=== PATIENT | female | born 1980 | race Caucasian/White ===

== ENCOUNTER 2018-05-10 17:31 | Inpatient (IN) | payer OTHER, MEDICAID, SELFPAY ==
[2018-05-10] VITALS (7 sets, daily range): BP systolic 104–116; BP diastolic 61–70; PULSE 88–104; RESP 16–18; TEMP 36.6–36.8; O2SAT 97–99; BMI 21.8
--- NOTE | 2018-05-10 18:18 | PC.NURSE ---
Addendum entered by Flor Frankel CNA 05/11/18 07:38: Original Note: admission pt to AC room 228 direct admit from 's office. Pt alert and oriented but states has been a little dizzy today. able to self transfer. Denies pain but states has had a difficult week loosing both her relationship and job. Has supportive friends at bedside. Spoke with pt prior to friends arriving and pt states is not feeling suicidal or thinking of harming herself. states is in a deep depression and just knows she needs to quit drinking and not sure of what to do next. Pt tearful and apologizes frequently. Pt updated about medical plan and oriented to room and call light. CIWA score currently 7. pt able to voice needs and questions and instructed to continue with the same. awaiting meds/fluids from pharmacy.
[2018-05-10] MEDS: NICOTINE 14 PATCH 14 MG TOP (18:51)
[2018-05-10] MEDS: MAGNESIUM SULFATE 2 GM, FOLIC ACID 1 MG, THIAMINE 100 MG, MULTIVITAMIN 10 ML in SODIUM ... IV (18:51)
[2018-05-10] MEDS: ONDANSETRON 4 MG ODT PO (18:52)
[2018-05-10] MEDS: LORazepam 1 MG TABLET PO ×2 (18:52→21:29)
[2018-05-10] MEDS: THIAMINE 100 MG TABLET PO (18:52)
[2018-05-10 19:34] LABS: INR 0.9 (0.9-1.3); Prothrombin Time 10.3 SECONDS (10.1-12.7)
[2018-05-10 19:45] LABS: Add Manual Diff / Slide Review NO; Basophils Percent Auto 0.5 % (0-2); Eosinophils Percent Auto 2.1 % (2-4); Hematocrit 40.9 % (36-46); Hemoglobin 13.8 g/dL (12.0-16.0); Lymphocytes Percent Auto 13.5 % (25-40); Mean Corpuscular HGB Conc 33.7 % (30-36); Mean Corpuscular Hemoglobin 32.1 PG (26-34); Mean Corpuscular Volume 95.5 fL (80-100); Monocytes Percent Auto 4.5 % (3-14); Neutrophils Absolute Auto 11800 /uL (3000-5900); Neutrophils Percent Auto 79.4 % (50-75); Platelet Count 284 X10^3/uL (150-400); Red Blood Cell Count 4.29 X10^6/uL (4.0-5.2); White Blood Cell Count 14.9 X10^3/uL (4.5-11.0)
[2018-05-10 19:56] LABS: Alanine Aminotransferase 64 IU/L (9-52); Albumin 4.3 g/dL (3.5-5.0); Albumin Globulin Ratio 1.5 (1.0-2.8); Alkaline Phosphatase 56 U/L (38-126); Aspartate Aminotransferase 73 IU/L (14-36); BUN Creatinine Ratio 18.6 (6-22); Bilirubin Total 0.6 mg/dL (0.2-1.3); Blood Urea Nitrogen 13 mg/dL (7-17); Calcium 9.1 mg/dL (8.4-10.2); Carbon Dioxide 25 mmol/L (22-32); Chloride 103 mmol/L (98-107); Estimated Glomerular Filt Rate > 60.0 mL/min (>60); Ethanol (ETOH) 101 mg/dL; Globulin 2.8 g/dL (1.7-4.1); Glucose 87 mg/dL (70-100); HEMOLYSIS < 15 (0-50); Magnesium 2.1 mg/dL (1.6-2.3); Potassium 4.3 mmol/L (3.4-5.1); Sodium 142 mmol/L (137-145); Total Protein 7.1 g/dL (6.3-8.2)
--- NOTE | 2018-05-10 21:19 | PM.HP.1 ---
History of Present Illness Date Patient Seen: 05/10/18 Time Patient Seen: 17:20 Chief complaint: ALCOHOL WITHDRAWL, INCREASED ANXIETY, SUICIDAL TRUMAN Narrative: Patient is a 37 yo female well known to me who presented to clinic today in crisis. Over the last 3 weeks or so she has had increasing anxiety. Has had suicidal ideation and was instructed to go to [facility] ED. I am not sure if she went there but she ended up at the crisis center for detox and was discharged after 3 days. She has continued to struggle after discharge and is feeling totally hopeless today and not wanting to go on. We had been giving her clonazepam for her anxiety but she doesn't know if she has any of this medication available. I did not feel like she had a safe plan so decided to admit her for observation tonight with the hopes that care management can work with her tomorrow. Over the course of the past week she has been unable to eat. She has chronic nausea at baseline as well as gastroparesis. She hasn't had any abdominal pain. She is somewhat dizzy and very cold. She reports that her last alcohol was about 2 hours before she came to clinic. She does not want to continue to drink but feels compelled because of extreme anxiety. She has had difficulty with SSRIs because of her nausea. Patient History Medical History Tobacco abuse (Chronic 09/01/11) Herpes simplex virus type 1 (HSV-1) dermatitis (Inactive 09/01/11) Hemorrhoids (Inactive 09/01/11) Depression (Chronic 09/01/11) Gastroparesis (Chronic 12/19/14) Nausea (Chronic 12/19/14) Mild alcohol use disorder, in early remission (Chronic 05/05/17) Insomnia (Chronic 05/05/17) Anxiety (Chronic 11/24/17) Acne vulgaris (Chronic) Cellulitis (Resolved) Surgical History Encounter for Essure implantation (Resolved 04/16/16) History of elective (Resolved) Status post dilation and curettage (Resolved) Family & Social History Social History: household members son, who is now staying with his father during this episode Prior Living Arrangements House Safety & Behavioral: Feels Safe in Current Yes Environment Been Physically Hurt or No Threatened By a Person Suicidal Ideation Description None Suicide Plan Description No Plan Tobacco & Substance use: Tobacco type cigarettes Smoking Status Current every day smoker Smoking packs per day 2 alcohol intake current alcohol intake frequency 3 or more drinks per day Substance Use Type marijuana Meds Home Medications Medication Instructions Recorded Confirmed Type clonazepam 0.5 mg tablet 0.5 mg PO TID PRN #90 tab 03/29/18 05/10/18 Rx prochlorperazine maleate 10 mg 10 mg PO Q8HP PRN #30 tab 04/19/18 05/10/18 Rx tablet ranitidine HCl 150 mg PO DAILY 05/10/18 05/10/18 History Allergies Allergy/AdvReac Type Severity Reaction Status Date / Time Penicillins [PENICILLINS] Allergy Unknown Verified 05/10/18 16:26 metoclopramide [From REGLAN] AdvReac Intermediate NAUSEA Verified 05/10/18 16:26 morphine [MORPHINE] AdvReac Intermediate HALLUCANATI Verified 05/10/18 16:26 ONS epinephrine [EPINEPHRINE] AdvReac Unknown PANIC Verified 05/10/18 16:26 ATTACK Review of Systems Constitutional Constitutional: Reports body ache(s) and Reports chills Cardiovascular Cardiovascular: Denies chest pain at rest, Reports lightheadedness, Reports rapid, pounding, or irregular heartbeat and Denies shortness of breath Respiratory Respiratory: Denies cough and Denies dyspnea Gastrointestinal Gastrointestinal: Reports nausea Psychiatric Psychiatric: Reports anxiety, Reports change in appetite, Reports depression, Reports hopelessness, Reports irritability, Reports panic attacks and Reports suicidal ideation Endocrine Endocrine: Reports palpitations Exam Vital Signs (past 8 hours): - 05/10/18 17:31 05/10/18 17:50 05/10/18 20:46 Temperature 97.9 F Pulse Rate 98 H 88 Respiratory Rate 16 18 Blood Pressure 109/70 109/66 Pulse Oximetry 98 98 97 Oxygen Delivery Method Room Air Narrative Exam Narrative: GEN: WD/WN female, moderate distress, tearful HEENT: mucus membranes moist LUNGS: CTA bilaterally HEART: RRR ABD: soft, nontender EXT: warm and well perfused SKIN: multiple tatoos Objective Labs Result Diagrams: 05/10/18 19:17 05/10/18 19:17 Labs: Laboratory Results - last 24 hr 05/10/18 05/10/18 05/10/18 19:17 19:17 19:17 WBC 14.9 H RBC 4.29 Hgb 13.8 Hct 40.9 MCV 95.5 MCH 32.1 MCHC 33.7 RDW 13.0 Plt Count 284 Neut % (Auto) 79.4 H Lymph % (Auto) 13.5 L [place] % (Auto) 4.5 Eos % (Auto) 2.1 Baso % (Auto) 0.5 Neut # (Auto) 97363 H PT 10.3 INR 0.9 Sodium 142 Potassium 4.3 Chloride 103 Carbon Dioxide 25 BUN 13 Creatinine 0.70 Estimated GFR > 60.0 BUN/Creatinine Ratio 18.6 Glucose 87 Calcium 9.1 Magnesium 2.1 Total Bilirubin 0.6 AST 73 H ALT 64 H Alkaline Phosphatase 56 Total Protein 7.1 Albumin 4.3 Globulin 2.8 Albumin/Globulin Ratio 1.5 Ethyl Alcohol 101 Assessment & Plan Plan: Assessment/Plan Narrative: 37 yo female with: 1. Alcohol use disorder, had been in early remission, now active. Had attempted detox. Will admit for detox and hopefully she will be able to go to inpatient treatment. [facility] protocol. 2. Depression with Anxiety. Tonight with suicidal ideation. No plan. Had been manageable with a small amount of BZ. Use has been escalating along with increased alcohol use. Will consider starting SSRI tomorrow. Consider psychiatric consult. 3. Leukocytosis. No obvious source at this time. Stable vitals. Monitor. 4. Elevated ALT/AST likely secondary to #1. Albumin and INR normal. 5. Tobacco use disorder. nicotine patch. 6. Chronic nausea. ondansetron/proclorperazine available. protonix. DVT prophylaxis: SCD's and ambulation. Code status: full DISPOSTION: further detox or inpatient treatment when able. Quality VTE Deep Vein Thrombosis/Pulmonary Embolism Present on Admission: No
--- NOTE | 2018-05-10 22:10 | PC.NURSE ---
Addendum entered by Aristeo Carrillo CNA 05/10/18 22:18: (did not finish note) after Nurse gave medication patient stated that she might like some cheese, ate two string chesses, drank a marci ann and is laying in bed, stats that she is feeling some what better. Patient is laying and watching TV. Original Note: Patient was visiting with friends at beginning of shift.Patient stated that she had not had a lot to eat in the last week but might like to try eating a garden veggie salad Patient ate about 80% of the salad with some help of her friends and drank a soda (240 cc). After friends left seizure pads were put into place and patient used the bathroom around 1930. Patient was crying and shaking while holding my hand telling me about everything that happened that had lead up to her being admitted to the hospital. Patient was breathing heavily and stated that she was having a panic attack. Patient stated serval times that her body hurt and that her needed help but was unable to tell about what kind of help her needed. Patient also stated that she did not know what she was going to do, she was a failure and disappointment. Patient got up around 2100 to use bathroom again and stated that she was on her period. after patient got back into bed patient enjoyed sharing some stories and laughing just a little. Nurse Ramirez administer medications
[2018-05-11] VITALS (9 sets, daily range): BP systolic 95–101; BP diastolic 52–64; PULSE 81–89; RESP 16–20; TEMP 36.7–37.5; O2SAT 98–99; BMI 21.8
[2018-05-11] MEDS: LORazepam 2 MG/ML SYRINGE IV ×7 (00:32→22:07)
[2018-05-11] MEDS: PROMETHAZINE 12.5 MG in SODIUM CHLORIDE 0.9% 50 ML 202 ML IV ×3 (00:38→21:57)
[2018-05-11] MEDS: ACETAMINOPHEN 325 MG TABLET 650 MG PO ×2 (04:06→16:55)
--- NOTE | 2018-05-11 04:12 | PC.NURSE ---
initial ciwa =11 w/pronounced shaking/ hand tremors, nausea,headache 6/10, sore throat,incr'd anxiety w/sensation of wanting to crawl out of my skin. no reports of hallucination visual or auditory. after iv phenergan pt stated nausea decr'd, medicated w/2mg iv ativan w/pt calmer,less restless/shaking. at this time pt has con'd anxiety hand tremor to touch,headache cont'd 6/10,also sore throat, and overall body aches rated 4/10. nausea is mild. a/o x's 3. ciwa 9. medicated w/1mg iv ativan,650mg of tylenol. pt requested iv phenergan when next avail. friend here visiting earlier and is spending night. pt dozing off/on, no statements of wanting to do self harm.
[2018-05-11] MEDS: FOLIC ACID 1 MG TABLET PO (08:50)
[2018-05-11] MEDS: MULTIVITAMIN 1 TABLET 1 TAB PO (08:50)
[2018-05-11] MEDS: THIAMINE 100 MG TABLET PO (08:50)
--- NOTE | 2018-05-11 10:09 | PM.PN.1 ---
Subjective Date Patient Seen: 05/11/18 Time Patient Seen: 08:09 Interval history: Patient is sleeping when I arrived this morning. She is easily arousable. Is having shakes as well as all over intermittent muscle cramping and pain. She is also complaining of an extremely sore throat as well as the right side of her upper neck. It is making it difficult for her to swallow. She denies suicidal thoughts. Is feeling somewhat more hopeful this morning however is still very anxious and worried about how to move forward. Concerned about pain her rent finding another job etc. Denies any recreational drug use besides marijuana. Exam Vital Signs (past 8 hours): - 05/11/18 07:00 Temperature 98.0 F Respiratory Rate 20 Blood Pressure 96/59 L Pulse Oximetry 99 Oxygen Delivery Method Room Air Oxygen Flow Rate 0 Narrative Exam Narrative: Objective: General: Well-developed, well-nourished, female, feeling anxious HEENT: NC/AT, PERRL, EAC patent, Right TM bulging with clear fluid, Left TM normal, bilateral red swollen tonsils Neck: right sided tenderness, no obviously swollen nodes Heart: Regular rate and rhythm, no murmurs appreciated Lungs: Clear to auscultation bilaterally, no wheezes, rales or rhonchi Abd: soft Extremities: Warm and well perfused, no edema, tremulous Mood anxious, affect supple, judgement poor, No SI or HI ideation Objective Labs Result Diagrams: 05/10/18 19:17 05/10/18 19:17 Labs: Laboratory Results - last 24 hr 05/10/18 05/10/18 05/10/18 19:17 19:17 19:17 WBC 14.9 H RBC 4.29 Hgb 13.8 Hct 40.9 MCV 95.5 MCH 32.1 MCHC 33.7 RDW 13.0 Plt Count 284 Neut % (Auto) 79.4 H Lymph % (Auto) 13.5 L [place] % (Auto) 4.5 Eos % (Auto) 2.1 Baso % (Auto) 0.5 Neut # (Auto) 28904 H PT 10.3 INR 0.9 Sodium 142 Potassium 4.3 Chloride 103 Carbon Dioxide 25 BUN 13 Creatinine 0.70 Estimated GFR > 60.0 BUN/Creatinine Ratio 18.6 Glucose 87 Calcium 9.1 Magnesium 2.1 Total Bilirubin 0.6 AST 73 H ALT 64 H Alkaline Phosphatase 56 Total Protein 7.1 Albumin 4.3 Globulin 2.8 Albumin/Globulin Ratio 1.5 Ethyl Alcohol 101 Assessment & Plan Plan: Assessment/Plan Narrative: 37 yo female with: 1. Alcohol use disorder, had been in early remission, relapse, now in active withdrawal. CIWA score to 11 overnight. Requiring regular lorazepam. Recommend inpatient treatment for dual diagnosis but not sure if we will be able to facilitate this. Care management to see today. 2. Depression with Anxiety. No further suicidal thoughts. Would benefit from psych consult but not available at this time. 3. Leukocytosis. Likely from sore throat. Strep screen pending. Patient has PCN allergy and intolerance to oral antibiotics. Will treat with parental azithromycin. 4. Elevated ALT/AST likely secondary to #1. Albumin and INR normal. 5. Tobacco use disorder. nicotine patch. 6. Chronic nausea. ondansetron/proclorperazine available. protonix. DVT prophylaxis: SCD's and ambulation. Code status: full DISPOSTION: inpatient treatment when able. Quality VTE Deep Vein Thrombosis/Pulmonary Embolism Present on Admission: No
[2018-05-11 13:17] LABS: Strep Grp A by PCR Rapid Negative
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
--- NOTE | 2018-05-11 22:53 | PC.NURSE ---
Pt has had a lot of emotional/psychological stresses in the last year. She spoke with me about multiple close support persons in her life passing away which lead to the drinking, she recently lost her job among other setbacks. Spending a lot of time visiting and listening has helped the anxiety a lot. By the end of this shift she as been less tearful, smiling more, and speaking positively about the future.
[2018-05-12] MEDS: LORazepam 2 MG/ML SYRINGE IV ×2 (00:49→04:28)
[2018-05-12] MEDS: AZITHROMYCIN 500 MG in DEXTROSE 5% IN WATER 250 ML IV (03:33)
[2018-05-12 04:50] VITALS: BP 109/67; PULSE 74; RESP 16; TEMP 36.7
[2018-05-12 08:00] VITALS: BP 99/61; PULSE 73; RESP 16; TEMP 36.5; O2SAT 99
[2018-05-12 08:15] VITALS: O2SAT 95
[2018-05-12] MEDS: PROMETHAZINE 12.5 MG in SODIUM CHLORIDE 0.9% 50 ML 202 ML IV ×2 (08:29→18:08)
[2018-05-12] MEDS: FOLIC ACID 1 MG TABLET PO (08:30)
[2018-05-12] MEDS: MULTIVITAMIN 1 TABLET 1 TAB PO (08:30)
[2018-05-12] MEDS: ACIDOPHILUS/L.BULG/BIF.B/S.THERMOP TABLET 1 EACH PO ×2 (08:30→12:41)
[2018-05-12] MEDS: THIAMINE 100 MG TABLET PO (08:31)
--- NOTE | 2018-05-12 08:49 | PM.PN.1 ---
Subjective Date Patient Seen: 05/12/18 Time Patient Seen: 08:50 Exam Vital Signs (past 8 hours): - 05/12/18 04:50 05/12/18 08:00 Temperature 98.0 F 97.7 F Pulse Rate 74 73 Respiratory Rate 16 16 Blood Pressure 109/67 99/61 Pulse Oximetry 99 Oxygen Delivery Method Room Air Oxygen Flow Rate 0 Objective Labs Result Diagrams: 05/10/18 19:17 05/10/18 19:17 Labs: Laboratory Results - last 24 hr 05/11/18 11:55 Group A Strep (PCR) Negative Quality VTE Deep Vein Thrombosis/Pulmonary Embolism Present on Admission: No
[2018-05-12] MEDS: PARoxetine 20 MG TABLET PO (09:27)
[2018-05-12] MEDS: NICOTINE 21 MG PATCH TOP (09:27)
--- NOTE | 2018-05-12 10:38 | PC.NURSE ---
AM NOTE - drowsy, awakens easily, ciwa 1, states continues with ongoing nausea, zofran doesn't work and makes her constipated, given 1v phenergan and pt did eat breakfast, more fluids.
[2018-05-12 12:00] VITALS: BP 97/58; PULSE 84; RESP 16; TEMP 36.4; O2SAT 95
--- NOTE | 2018-05-12 15:27 | CM.DPC ---
DCP Cont: Reviewed chart, spoke w/Dr Bolanos and then spoke w/pt this morning. Dr Bolanos expects pt to be here for another 24-48 hrs; pt's CIWA is down today to 1. Dr Bolanos would like pt to f/u in intensive outpt counseling/ MH/JAYNA treatment although pt will ultimately need to agree and f/u on her own. Met w/pt this morning; pt sits up, sleepy and groggy throughout our conversation, but willing to participate. Pt wants to go home. She has two dogs at home, friend is stopping by to feed them. Pt agreeable to following up at [facility] P # [phone] for ongoing counseling/treatment. Pt concerned that they will not accept Bella. Pt has a friend sleeping at bedside, she introduces as a friend, he does not awaken during our conversation. Pt explains she was going to a counselor in [facility] that she found helpful but that person stopped taking Bella. 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 Pt would like to start looking for employment once DC. Reviewed a few coping techniques for panic attacks; Pt's willingness to engage in this conversation diminished as this CORE CHECKER reviewed ideas like questioning the thought I will not live through this panic attack by considering survival through a prior panic attack, pt already familiar w/this idea. Discussed re-writing the script by creating new visualizations/thoughts around triggers...pt states her panic attacks sometimes come out of no where and she does not have a trigger. Later delivered information about [facility] in [place] (medicaid and sliding scale) and [facility] to pt's rm, pt sleeping soundly. Confirmed w/ Clinical Melter Assistant Cody P# [phone], that pt needs to either call the desktop engineer to schedule an appt or walk in during the walk in appt hours 6am-10am Tuesdays and Wednesdays. ANUM Pink Discharge Planning/Care Management CM Discharge Assessment Start: 05/11/18 15:45 Freq: Status: Active Protocol: Document 05/11/18 15:45 KJS (Rec: 05/11/18 15:45 KJS [id number]) Discharge Planning Assessment Assigned Civil Engineer Land Development ANUM/Sandi History Provided By Patient Has Patient been admitted in last 30 No days? Prior Living Arrangements House Household Members children Independent with ADL's Yes Is patient alert and oriented? Yes Caregiver for Another No Discharge Plan Home Review Status In Process Next Review Type Continued Stay Review
[2018-05-12 18:02] VITALS: O2SAT 98
--- NOTE | 2018-05-12 18:19 | P.DS_ITS ---
History of Present Illness Date Patient Seen: 05/12/18 Time Patient Seen: 18:17 Chief complaint: ALCOHOL WITHDRAWL, INCREASED ANXIETY, SUICIDAL TRUMAN Narrative: Patient is a 37 yo female well known to me who presented to clinic today in crisis. Over the last 3 weeks or so she has had increasing anxiety. Has had suicidal ideation and was instructed to go to [facility] ED. I am not sure if she went there but she ended up at the crisis center for detox and was discharged after 3 days. She has continued to struggle after discharge and is feeling totally hopeless today and not wanting to go on. We had been giving her clonazepam for her anxiety but she doesn't know if she has any of this medication available. I did not feel like she had a safe plan so decided to admit her for observation tonight with the hopes that care management can work with her tomorrow. Over the course of the past week she has been unable to eat. She has chronic nausea at baseline as well as gastroparesis. She hasn't had any abdominal pain. She is somewhat dizzy and very cold. She reports that her last alcohol was about 2 hours before she came to clinic. She does not want to continue to drink but feels compelled because of extreme anxiety. She has had difficulty with SSRIs because of her nausea. Discharge Providers Date of admission: 05/10/18 17:31 Primary care physician: Justyna Bolanos DO Consults: 05/10/18 17:55 Consult to Television Cabinet Finisher Routine Comment: alcohol treatment, anxiety, suicidal ideation 05/10/18 18:08 Consult to Dietitian, Adult Routine Comment: Reason For Exam: gluten intolerance. frequent nausea. low appetite Consult to Pastoral Services Routine Comment: lost job and S.O. this week. deep depression Discharge provider: Justyna Bolanos DO Summary Discharge Diagnosis: Depression with suicidal ideation Anxiety Alcohol withdrawal Pharyngitis Hospital Course: 1. Alcohol use disorder, had been in early remission, relapse, presented in active withdrawal. CIWA score to 11 overnight. Tremors and anxiety improved with lorazepam. She received no lorazepam during the day prior to discharge. I Recommended inpatient treatment for dual diagnosis but this is not feasible because of patient's need to find a job and take care of her animals. She has plans to connect with [facility] early next week. If this does not work out she also has a backup plan with [employer] [facility]. She Will Be having a friend stay with her who is good support. 2. Depression with Anxiety. No further suicidal thoughts. Would benefit from psych consult but not available at this time. Restarted Paxil which has been effective for her in the past. Will discharge her with a small amount of lorazepam with close follow-up next week in clinic. Plan is to follow her closely unless she is able to establish with the other 2 sites above. 3. Leukocytosis. Likely from sore throat. Strep screen negative however her presentation was consistent with a bacterial pharyngitis. Has responded well to azithromycin. She will use Phenergan at home to tolerate the oral azithromycin. 4. Elevated ALT/AST likely secondary to #1. Albumin and INR normal. Will follow as outpatient. 5. Tobacco use disorder. nicotine patch. 6. Chronic nausea. ondansetron/promethazine available. protonix while in-house. She uses promethazine at home and refills were given. DVT prophylaxis was not necessary because patient was ambulatory. Code status: full Status at Discharge Functional status at discharge: independent ambulation Overall status at discharge: patient is progressing back to baseline Time Spent with Patient Greater than 30 minutes Exam Vital Signs (past 8 hours): - 05/12/18 12:00 05/12/18 18:02 Temperature 97.5 F L Pulse Rate 84 Respiratory Rate 16 Blood Pressure 97/58 L Pulse Oximetry 95 98 Oxygen Delivery Method Room Air Oxygen Flow Rate 0 Narrative Exam Narrative: General: Well-developed, well-nourished, female HEENT: NC/AT, PERRL, EAC patent, Right TM bulging with clear fluid, Left TM normal, posterior oropharynx mildly red Neck: Supple nontender Heart: Regular rate and rhythm, no murmurs appreciated Lungs: Clear to auscultation bilaterally, no wheezes, rales or rhonchi Abd: soft Extremities: Warm and well perfused, no edema, tremulous Mood calm, affect supple, judgement fair, No SI or HI ideation Objective Labs Result Diagrams: 05/10/18 19:17 05/10/18 19:17 Discharge Plan Discharge Plan Patient Disposition: Home, Self-Care Discharge Med Rec/Prescriptions Prescriptions: New lorazepam 1 mg tablet 1 mg PO .Q6 PRN (Reason: alcohol withdrawal) Qty: 20 RF: 0 paroxetine HCl [Paxil] 20 mg Tablet 20 mg PO DAILY Qty: 30 RF: 0 azithromycin [Zithromax Z-Torres] 250 mg Tablet 250 mg PO BEDTIME Qty: 4 RF: 0 Continue ranitidine HCl 150 mg tablet 150 mg PO DAILY RF: 0 prochlorperazine maleate 10 mg tablet 10 mg PO Q8HP PRN (Reason: nausea and vomiting) Qty: 30 RF: 1 Discontinued clonazepam 0.5 mg tablet 0.5 mg PO TID PRN (Reason: anxiety) Qty: 90 RF: 0 Visit Report/Discharge Packet Visit Report Forms: Stroke Signs & Symptoms Discharge Data Primary Care Provider: Justyna Bolanos Attending Provider: Justyna Bolanos Admit Date/Time: 05/10/18 17:31 Discharges patient from system. Discharge Date/Time: 05/12/18 19:00 Quality VTE Deep Vein Thrombosis/Pulmonary Embolism Present on Admission: No
== END 2018-05-12 19:00 | disposition home or self-care (01) | DRG 775 ==
PROVIDERS: Admitting Provider Family Medicine; Family Provider Family Medicine; PCP Family Medicine; Visit Provider Family Medicine
DX: F10.230 Alcohol dependence with withdrawal, uncomplicated (principal); F41.9 Anxiety disorder, unspecified; Y90.5 Blood alcohol level of 100-119 mg/100 ml; K31.84 Gastroparesis; R45.851 Suicidal ideations; D72.829 Elevated white blood cell count, unspecified; J02.9 Acute pharyngitis, unspecified; F17.210 Nicotine dependence, cigarettes, uncomplicated; F32.89 Other specified depressive episodes
CPT/HCPCS: 80053; 80320; 83735; 85025; 85610; 87651; 99222; 99232; 99238; 99406; G0379; J2060; J2550; J3475

== ENCOUNTER 2018-09-06 11:17 | Emergency (ER) | payer OTHER, MEDICAID, SELFPAY ==
[2018-05-10 17:40] VITALS: BMI 21.8
[2018-09-06 11:29] VITALS: BP 123/88; PULSE 98; RESP 20; TEMP 37.1; O2SAT 100; BMI 22.7
[2018-09-06] MEDS: LORazepam 0.5 MG TABLET 2 MG PO (11:58)
--- NOTE | 2018-09-06 12:01 | ED_ITS ---
HPI - Anxiety General Chief Complaint: Anxiety Stated Complaint: MASSIVE ANXIETY Time Seen by Provider: 09/06/18 11:42 Source: patient Mode of arrival: ambulatory Limitations: no limitations History of Present Illness HPI narrative: PATIENT IS A 37-YEAR-OLD FEMALE WHO PRESENTS WITH SEVERE ANXIETY. SHE DOES HAVE HISTORY OF ALCOHOL ABUSE. SHE SAYS SHE HAS HAD A LOT OF STRESS OVER THE LAST 1 YEAR, SHE HAS HAD MULTIPLE FRIENDS . TODAY SHE FEELS LIKE SHE IS NOT ABLE TO FUNCTION. SHE DENIES SUICIDAL OR HOMICIDAL IDEATIONS. SHE TOOK PROPRANOLOL PERSCRIBED, 2 MG OF ATIVAN AND SHE HAD 3-4 BEERS. SHE SAYS SHE REALLY HAS CUT BACK ON HER DRINKING SHE TOOK APPEAR TO HELP HER CALM DOWN. SHE FEELS LIKE SHE NEEDS HELP. SHE IS NOT CURRENTLY SET UP WITH THERAPY. Related Data Previous Rx's Medication Instructions Recorded azelastine-fluticasone 137 mcg-50 1 spray NASAL BID #23 gram 06/09/18 mcg/spray nasal spray paroxetine 20 mg tablet 20 mg PO DAILY #30 tab 07/20/18 prochlorperazine maleate 10 mg 10 mg PO Q8HP PRN #30 tab 08/21/18 tablet ranitidine 150 mg tablet 150 mg PO DAILY #90 tab 08/28/18 lorazepam 1 mg tablet 1 mg PO Q6H PRN #30 tab 09/04/18 propranolol 10 mg tablet 10 mg PO BID #60 tab 09/04/18 quetiapine 25 mg tablet 25 mg PO BEDTIME #30 tab 09/04/18 Allergies Allergy/AdvReac Type Severity Reaction Status Date / Time Penicillins [PENICILLINS] Allergy Unknown Verified 09/04/18 16:30 metoclopramide [From REGLAN] AdvReac Intermediate NAUSEA Verified 09/04/18 16:30 morphine [MORPHINE] AdvReac Intermediate HALLUCANATI Verified 09/04/18 16:30 ONS epinephrine [EPINEPHRINE] AdvReac Unknown PANIC Verified 09/04/18 16:30 ATTACK Review of Systems Review of Systems All systems reviewed & are unremarkable except as noted in HPI and below Constitutional Denies chills, Denies fever(s), Denies lethargy and Denies weakness Cardiovascular Denies chest pain, Denies irregular heart rhythm, Denies lightheadedness, Denies palpitations, Denies dyspnea, Denies dyspnea on exertion and Denies orthopnea Respiratory Denies cough, Denies dyspnea, Denies dyspnea on exertion and Denies wheezing Gastrointestinal Gastrointestinal: Denies abdominal pain, Denies change in bowel habits, Denies diarrhea, Denies nausea and Denies vomiting Musculoskeletal Denies back pain, Denies muscle weakness, Denies numbness and Denies tingling Neurologic Denies numbness, Denies tingling and Denies weakness Psychiatric Reports as per HPI Endocrine Denies palpitations Allergic/Immunologic Denies wheezing [facility] Medical History Tobacco abuse (Chronic 09/01/11) Herpes simplex virus type 1 (HSV-1) dermatitis (Inactive 09/01/11) Hemorrhoids (Inactive 09/01/11) Depression (Chronic 09/01/11) Gastroparesis (Chronic 12/19/14) Nausea (Chronic 12/19/14) Mild alcohol use disorder, in early remission (Chronic 05/05/17) Insomnia (Chronic 05/05/17) Anxiety (Chronic 11/24/17) Acne vulgaris (Chronic) Cellulitis (Resolved) Surgical History Encounter for Essure implantation (Resolved 04/16/16) History of elective (Resolved) Status post dilation and curettage (Resolved) Social History household members: children Smoking Status: Current every day smoker alcohol intake: current Exam Initial Vital Signs Initial Vital Signs: Vital Signs Temperature 98.7 F 09/06/18 11:29 Pulse Rate 98 H 09/06/18 11:29 Respiratory Rate 20 09/06/18 11:29 Blood Pressure 123/88 09/06/18 11:29 Pulse Oximetry 100 09/06/18 11:29 GENERAL: Tearful crying upset and anxious consolable HEENT: Head atraumatic,EOMI, pupils reactive CARDIOVASCULAR: Regular rate and rhythm without murmurs, rubs or gallops. RESPIRATORY: Breath sounds equal bilaterally, no wheezes rales or rhonchi. ABDOMEN: Soft, nontender. Normoactive bowel sounds all 4 quadrants. No guarding or rebound. EXTREMITIES: Normal range of motion, no clubbing or edema. Neurovascularly intact NEUROLOGICAL: Alert and oriented x4.Normal gait and speech. SKIN: Warm, dry, no laceration, no petechiae, no rashes or lesions. Course Orders Ordered: ED Orders 09/06/18 11:52 Consult to Air Analysis Engineering Technician Stat 09/06/18 12:09 Complete Blood Count AUTO DIFF Stat Comprehensive Metabolic Panel Stat Ethanol (ETOH) Stat Thyroid Stimulating Hormone Stat 09/06/18 12:34 Urine Drug Screen, Rapid Stat Discontinued Medications Lorazepam (Ativan) 2 mg PO NOW ONE Stop: 09/06/18 11:53 Last Admin: 09/06/18 11:58 Dose: 2 mg Vital Signs - 8 hr 09/06/18 11:29 09/06/18 15:38 Temperature 98.7 F Pulse Rate 98 H 76 Respiratory Rate 20 20 Blood Pressure 123/88 109/64 Pulse Oximetry 100 100 MDM - Anxiety Lab Data Attestation: I reviewed the patient's lab results. Result diagrams: 09/06/18 12:09 09/06/18 12:09 Lab Results 09/06/18 09/06/18 09/06/18 Range/Units 12:09 12:09 12:09 WBC 9.5 (4.5-11.0) X10^3/uL RBC 4.41 (4.0-5.2) X10^6/uL Hgb 14.3 (12.0-16.0) g/dL Hct 41.0 (36-46) % MCV 93.0 (80-100) fL MCH 32.5 (26-34) PG MCHC 34.9 (30-36) % RDW 12.7 (11.6-14.8) % Plt Count 286 (150-400) X10^3/uL Neut % (Auto) 74.8 (50-75) % Lymph % (Auto) 18.6 L (25-40) % Runnels % (Auto) 5.1 (3-14) % Eos % (Auto) 1.0 L (2-4) % Baso % (Auto) 0.5 (0-2) % Neut # (Auto) 7100 H (4669-7788) /uL Sodium 136 L (137-145) mmol/L Potassium 4.2 (3.4-5.1) mmol/L Chloride 101 (98-107) mmol/L Carbon Dioxide 25 (22-32) mmol/L BUN 9 (7-17) mg/dL Creatinine 0.70 (0.52-1.04) mg/dL Estimated GFR > 60.0 (>60) mL/min BUN/Creatinine Ratio 12.9 (6-22) Glucose 80 (70-100) mg/dL Calcium 9.0 (8.4-10.2) mg/dL Total Bilirubin 0.8 (0.2-1.3) mg/dL AST 24 (14-36) IU/L ALT 19 (9-52) IU/L Alkaline Phosphatase 55 (38-126) U/L Total Protein 7.4 (6.3-8.2) g/dL Albumin 4.2 (3.5-5.0) g/dL Globulin 3.2 (1.7-4.1) g/dL Albumin/Globulin Ratio 1.3 (1.0-2.8) TSH 0.59 (0.47-4.68) uIU/mL Urine Opiates Screen (Negative) Ur Oxycodone Screen (Negative) Urine Methadone Screen (Negative) Ur Barbiturates Screen (Negative) U Tricyclic Antidepress (Negative) Ur Phencyclidine Scrn (Negative) Ur Amphetamines Screen (Negative) U Methamphetamines Scrn (Negative) Ur MDMA Scrn (Ecstasy) (Negative) U Benzodiazepines Scrn (Negative) Urine Cocaine Screen (Negative) U Marijuana (THC) Screen (Negative) Ethyl Alcohol 48 mg/dL 09/06/18 Range/Units 12:34 WBC (4.5-11.0) X10^3/uL RBC (4.0-5.2) X10^6/uL Hgb (12.0-16.0) g/dL Hct (36-46) % MCV (80-100) fL MCH (26-34) PG MCHC (30-36) % RDW (11.6-14.8) % Plt Count (150-400) X10^3/uL Neut % (Auto) (50-75) % Lymph % (Auto) (25-40) % Runnels % (Auto) (3-14) % Eos % (Auto) (2-4) % Baso % (Auto) (0-2) % Neut # (Auto) (7707-2363) /uL Sodium (137-145) mmol/L Potassium (3.4-5.1) mmol/L Chloride (98-107) mmol/L Carbon Dioxide (22-32) mmol/L BUN (7-17) mg/dL Creatinine (0.52-1.04) mg/dL Estimated GFR (>60) mL/min BUN/Creatinine Ratio (6-22) Glucose (70-100) mg/dL Calcium (8.4-10.2) mg/dL Total Bilirubin (0.2-1.3) mg/dL AST (14-36) IU/L ALT (9-52) IU/L Alkaline Phosphatase (38-126) U/L Total Protein (6.3-8.2) g/dL Albumin (3.5-5.0) g/dL Globulin (1.7-4.1) g/dL Albumin/Globulin Ratio (1.0-2.8) TSH (0.47-4.68) uIU/mL Urine Opiates Screen Negative (Negative) Ur Oxycodone Screen Negative (Negative) Urine Methadone Screen Negative (Negative) Ur Barbiturates Screen Negative (Negative) U Tricyclic Antidepress Negative (Negative) Ur Phencyclidine Scrn Negative (Negative) Ur Amphetamines Screen Negative (Negative) U Methamphetamines Scrn Negative (Negative) Ur MDMA Scrn (Ecstasy) Negative (Negative) U Benzodiazepines Scrn Positive H (Negative) Urine Cocaine Screen Negative (Negative) U Marijuana (THC) Screen Positive H (Negative) Ethyl Alcohol mg/dL Point of Care Testing Test Results Negative Urine Dip Bedside Urine Glucose Negative Bedside Urine Bilirubin - Negative Bedside Urine Ketone - Negative Urine Specific Witter 1.010 Bedside Urine Occult Blood - Negative Bedside Urine pH 6.0 Bedside Urine Protein - Negative Bedside Urine Urobilinogen - Negative Bedside Urine Nitrite - Negative Bedside Urine Leukocytes - Negative Esterase MDM Narrative Medical decision making narrative: CASE MANAGEMENT has been notified of patient. Patient is voluntary does not knee involuntary criteria at this time. Case management has set up with outpatient follow-up and treatment. I have discussed with patient if she feels her symptoms are worse or she is not able to function then she should return to the ER and is welcome to at any time. She has a prescription for Seroquel which is waiting for her at [facility]. This [facility] is supposed to call her at 5:00 p.m. I recommended that she wait until after that phone call before taking Seroquel. Discharge Plan Departure Patient Disposition: Home Clinical Impression: Anxiety Discharge Date/Time: 09/06/18 15:38 Interventions: ED Discharge Assessment Last Done: 09/06/18 15:38 Instructions: Anxiety Disorders, Anxiety and Panic Attacks (Alternative Therapy ), Yoga May Help Reduce Anxiety and Stress Activity Restrictions/Additional Instructions: *You have been diagnosed with anxiety *What to do: [facility] team will call you today at 5:00 p.m. and schedule appointments. ---> *Continue to take medications as directed -you will need to talk to them for primary care provider about long-term anxiety medication. Medication is generally not started in the emergency department *Follow up with your primary care provider in 2-3 days *Return to ER if you should have feelings of suicide, homicide, severe anxiety or any new, worsening or concerning symptoms Prescriptions: No Action paroxetine HCl 20 mg tablet 20 mg PO DAILY Qty: 30 RF: 2 prochlorperazine maleate 10 mg tablet 10 mg PO Q8HP PRN (Reason: nausea and vomiting) Qty: 30 RF: 0 ranitidine HCl 150 mg tablet 150 mg PO DAILY Qty: 90 RF: 0 azelastine-fluticasone 137-50 mcg/spray spray,non-aerosol 1 spray NASAL BID Qty: 23 RF: 0 quetiapine 25 mg tablet 25 mg PO BEDTIME Qty: 30 RF: 1 lorazepam 1 mg tablet 1 mg PO Q6H PRN (Reason: anxiety) Qty: 30 RF: 0 propranolol 10 mg tablet 10 mg PO BID Qty: 60 RF: 0 Referrals: [facility] Roldan Delatorre [Outside] Justyna Bolanos DO [Primary Care Provider] -
[2018-09-06 12:22] LABS: Add Manual Diff / Slide Review NO; Basophils Percent Auto 0.5 % (0-2); Hemoglobin 14.3 g/dL (12.0-16.0); Lymphocytes Percent Auto 18.6 % (25-40); Mean Corpuscular HGB Conc 34.9 % (30-36); Mean Corpuscular Hemoglobin 32.5 PG (26-34); Monocytes Percent Auto 5.1 % (3-14); Neutrophils Absolute Auto 7100 /uL (3000-5900); Neutrophils Percent Auto 74.8 % (50-75); Platelet Count 286 X10^3/uL (150-400); Red Blood Cell Count 4.41 X10^6/uL (4.0-5.2); Red Cell Distribution Width 12.7 % (11.6-14.8); White Blood Cell Count 9.5 X10^3/uL (4.5-11.0)
[2018-09-06 12:35] LABS: Alanine Aminotransferase 19 IU/L (9-52); Albumin 4.2 g/dL (3.5-5.0); Albumin Globulin Ratio 1.3 (1.0-2.8); Alkaline Phosphatase 55 U/L (38-126); Aspartate Aminotransferase 24 IU/L (14-36); BUN Creatinine Ratio 12.9 (6-22); Bilirubin Total 0.8 mg/dL (0.2-1.3); Blood Urea Nitrogen 9 mg/dL (7-17); Carbon Dioxide 25 mmol/L (22-32); Chloride 101 mmol/L (98-107); Estimated Glomerular Filt Rate > 60.0 mL/min (>60); Globulin 3.2 g/dL (1.7-4.1); Glucose 80 mg/dL (70-100); HEMOLYSIS < 15 (0-50); Potassium 4.2 mmol/L (3.4-5.1); Sodium 136 mmol/L (137-145); Total Protein 7.4 g/dL (6.3-8.2)
[2018-09-06 12:43] LABS: Urine Amphetamines Negative (Negative); Urine Barbiturates Negative (Negative); Urine Benzodiazepines Positive (Negative); Urine Cocaine Negative (Negative); Urine MDMA Negative (Negative); Urine Methadone Negative (Negative); Urine Methamphetamines Negative (Negative); Urine Morphine/Opi cutoff 2000 Negative (Negative); Urine Oxycodone Negative (Negative); Urine Phencyclidine Negative (Negative); Urine Tetrahydrocannabinol Positive (Negative); Urine Tricyclic Antidepressant Negative (Negative)
[2018-09-06 12:51] LABS: Ethanol (ETOH) 48 mg/dL
--- NOTE | 2018-09-06 13:05 | PC.NURSE ---
Informed visitor that we are waiting for social work and we will call her again. asked to wait in room and use call lights for needs as we have other pts. Verbalized understanding.
[2018-09-06 13:29] LABS: Thyroid Stimulating Hormone 0.59 uIU/mL (0.47-4.68)
--- NOTE | 2018-09-06 13:39 | PC.NURSE ---
Call from [place]. States no CARPENTER PACKING in house today. She is assisting with resources and referral for this pt. She will be down in 20 minutes.
[2018-09-06 15:38] VITALS: BP 109/64; PULSE 76; RESP 20; O2SAT 100
--- NOTE | 2018-09-07 17:05 | CM.SWNOTE ---
ED FUNDING COORDINATOR NOTE DISPENSING LEAD was asked to follow up with this pt who was in the ED yesterday. CPIT was to have called patient at 5 PM yesterday. ED FUNDING COORDINATOR called to check in and make sure she had the needed resources. NO one answered. WIll inform Care photoengraving supervisor who met with pt yesterday. Will plan to f/u again tomorrow. Thank you. ASTER Cuenca
--- NOTE | 2018-09-08 15:20 | CM.SWNOTE ---
ED WET MIX OPERATOR NOTE TYPE CASTING MACHINE OPERATOR called pt and left another message inquiring if she had the necessary resources. Mentioned that this was a follow up call nad that I welcomed a return call if she desired. This is the 2nd attempt two days in a row. Thank you ASTER Cuenca
--- NOTE | 2018-09-09 15:17 | PC.NURSE ---
Follow-up phone call provided. No answer at this time
--- NOTE | 2018-09-13 15:49 | CM.SWNOTE ---
ED VP TRANSPORTATION Note INSIDE [employer] made 3rd f/u call attempt. Pt answered. She informed VP TRANSPORTATION that [facility]. Inquired if she had the resources she needed. Pt said she was supposed to see someone at [place], but would like to be seen closer. Offered to call [facility] if she desired. She was very appreciative, but unfortunately when I called, was informed that they were not accepting Medicaid. Called pt again. She has an appt with her PCP on Tuesday ( 4 days from now) and is aware that she can go to [facility] walk in clinic for an appointment. Inquired if she had the crisis line and CPIT information and she did. Pt is aware that she can return to the ED if needed for increased symptoms or concerns. It was not clear if she was set up with Chris if this was just a suggestion from [facility] for follow up. No further SW needs noted at this time.
== END 2018-09-06 15:38 | disposition home or self-care (01) ==
PROVIDERS: Emergency Provider Emergency Medicine; PCP Family Medicine
DX: F41.9 Anxiety disorder, unspecified (principal)
CPT/HCPCS: 36415; 80053; 80305; 80320; 81003; 81025; 84443; 85025; 99283

== ENCOUNTER 2018-09-17 16:38 | Emergency (ER) | payer OTHER, MEDICAID, SELFPAY ==
[2018-05-10 17:40] VITALS: BMI 21.8
--- NOTE | 2018-09-17 16:40 | ED.CHESTPAIN ---
HPI - Chest Pain General Chief Complaint: Chest Pain Stated Complaint: Chest Pain Time Seen by Provider: 09/17/18 16:40 Source: patient Mode of arrival: ambulatory Limitations: no limitations History of Present Illness HPI narrative: Patient is a 37-year-old female here for which he thinks is an anxiety attack or ?withdrawals ?. Patient states that the beginning last week she was discharged from [facility]. She states that the only medication she was discharged with was gabapentin. She states that she was having ?refractory panic attacks ?. She states that the benzodiazepines were no longer working for her. She states that they did not prescribe her any benzodiazepines. She states that she has not drank for a month other than ?a mouthful ?of jacoby on . She does have a follow-up with her primary care doctor tomorrow however she states that she did not think she could make it until then. She states that she has been on quetiapine in the past with seems to have worked for her. Related Data Previous Rx's Medication Instructions Recorded azelastine-fluticasone 137 mcg-50 1 spray NASAL BID #23 gram 06/09/18 mcg/spray nasal spray paroxetine 20 mg tablet 20 mg PO DAILY #30 tab 07/20/18 prochlorperazine maleate 10 mg 10 mg PO Q8HP PRN #30 tab 08/21/18 tablet ranitidine 150 mg tablet 150 mg PO DAILY #90 tab 08/28/18 lorazepam 1 mg tablet 1 mg PO Q6H PRN #30 tab 09/04/18 propranolol 10 mg tablet 10 mg PO BID #60 tab 09/04/18 quetiapine 25 mg tablet 25 mg PO BEDTIME #30 tab 09/04/18 quetiapine [Seroquel] 25 mg PO BID #14 tab 09/17/18 Allergies Allergy/AdvReac Type Severity Reaction Status Date / Time Penicillins [PENICILLINS] Allergy Unknown Verified 09/17/18 16:57 metoclopramide [From REGLAN] AdvReac Intermediate NAUSEA Verified 09/17/18 16:57 morphine [MORPHINE] AdvReac Intermediate HALLUCANATI Verified 09/17/18 16:57 ONS epinephrine [EPINEPHRINE] AdvReac Unknown PANIC Verified 09/17/18 16:57 ATTACK Review of Systems Constitutional Denies fever(s) and Reports headache(s) ENT Ears, Nose, Mouth, and Throat: Reports dizziness and Reports headache(s) Cardiovascular Reports chest pain, Reports rapid heart rate, Reports palpitations and Reports dyspnea Respiratory Reports dyspnea Gastrointestinal Gastrointestinal: Reports change in bowel habits, Reports diarrhea, Reports nausea and Denies vomiting Genitourinary Denies dysuria Musculoskeletal Denies myalgias and Denies arthralgias Integumentary/Breasts Denies rash Neurologic Reports behavioral changes, Denies confusion, Reports dizziness and Reports headache(s) Psychiatric Reports anxiety, Reports behavioral changes, Denies confusion, Reports mood swings, Reports panic attacks and Denies suicidal ideation Endocrine Reports palpitations Hematologic/Lymphatic Comments: Not on anticoagulation [facility] Social History household members: children Smoking Status: Current every day smoker alcohol intake: current Exam Initial Vital Signs Initial Vital Signs: Vital Signs Pulse Rate 112 H 09/17/18 16:51 Respiratory Rate 27 H 09/17/18 16:51 Blood Pressure 128/88 09/17/18 16:51 Const General: cooperative, comfortable, well developed, well groomed and No acute distress Orientation: alert, awake and oriented x3 HENMT Head: normal to inspection and normocephalic Resp Effort & Inspection: normal respiratory effort and tachypneic Auscultation: clear to auscultation bilaterally Cardio Rate: tachycardic Pulses: radial pulses present GI Palpation: soft Skin Lesions: no lesions Rashes: no rashes Neuro General: alert, awake and oriented x3 Speech: speech normal Extrem General: normal to inspection and capillary refill normal Psych Appearance: grossly normal and well kempt Speech and Movement: not agitated and restless Mood: manic mood and No angry Affect: anxious affect Attitude: cooperative Thought Content: no homicidality and suicidality Course Orders Ordered: ED Orders 09/17/18 16:41 EKG-12 Lead Stat Discontinued Medications Promethazine HCl (Phenergan) 25 mg PO NOW ONE Stop: 09/17/18 17:12 Last Admin: 09/17/18 17:29 Dose: 25 mg Quetiapine Fumarate (Seroquel) 50 mg PO NOW ONE Stop: 09/17/18 16:53 Last Admin: 09/17/18 17:05 Dose: 50 mg Vital Signs - 8 hr 09/17/18 16:51 09/17/18 17:31 Pulse Rate 112 H 88 Respiratory Rate 27 H 30 H Blood Pressure 128/88 Blood Pressure [Left Arm] 110/68 Pulse Oximetry 100 MDM - Chest Pain ECG Data Attestation: I personally reviewed and interpreted this ECG as follows: Prior ECG tracings: not available for review Interpretation: Sinus rhythm Ventricular rate of 94 Normal axis Normal QRS Normal QTC No ST T wave changes [facility] Narrative Medical decision making narrative: Patient states she does feel better after the Seroquel here in the emergency department. She does have an appointment tomorrow morning with her mental health provider at Dec. She also has an appointment tomorrow afternoon with her primary care doctor. She did not want any benzodiazepines. I feel like this is not alcohol withdrawal. Her last drink was greater than 4 days ago. Her last dose of benzodiazepines was greater than 5 days ago. She states this does feel like anxiety to her. Had a long discussion with the patient regarding her symptoms. Informed her that I do not have a medication that would immediately take her symptoms away since she does not want to take benzodiazepines. I informed her that she was not having a heart attack which did improve some of her anxiety. Will send home with a prescription for the Seroquel. She thinks that just having the prescription at home will make her feel better. She was given return precautions. She expressed understanding and agree with this plan. Discharge Plan Departure Patient Disposition: Home Clinical Impression: Anxiety Instructions: Anxiety and Panic Attacks (Alternative Therapy), DI for Anxiety -- Adult Activity Restrictions/Additional Instructions: I highly recommend that you keep your medical appointments that you have scheduled tomorrow. Take the medication as directed. You can return to the emergency department at any time for new or worsening symptoms Prescriptions: New quetiapine [Seroquel] 25 mg tablet 25 mg PO BID Qty: 14 RF: 0 No Action paroxetine HCl 20 mg tablet 20 mg PO DAILY Qty: 30 RF: 2 prochlorperazine maleate 10 mg tablet 10 mg PO Q8HP PRN (Reason: nausea and vomiting) Qty: 30 RF: 0 ranitidine HCl 150 mg tablet 150 mg PO DAILY Qty: 90 RF: 0 azelastine-fluticasone 137-50 mcg/spray spray,non-aerosol 1 spray NASAL BID Qty: 23 RF: 0 quetiapine 25 mg tablet 25 mg PO BEDTIME Qty: 30 RF: 1 lorazepam 1 mg tablet 1 mg PO Q6H PRN (Reason: anxiety) Qty: 30 RF: 0 propranolol 10 mg tablet 10 mg PO BID Qty: 60 RF: 0
[2018-09-17 16:51] VITALS: BP 128/88; PULSE 112; RESP 27; BMI 25.0
[2018-09-17] MEDS: QUETIAPINE 25 MG TABLET 50 MG PO (17:05)
[2018-09-17] MEDS: PROMETHAZINE 25 MG TABLET PO (17:29)
[2018-09-17 17:31] VITALS: BP 110/68; PULSE 88; RESP 30; O2SAT 100
== END 2018-09-17 18:25 | disposition home or self-care (01) ==
PROVIDERS: Emergency Provider Emergency Medicine; PCP Family Medicine
DX: F41.9 Anxiety disorder, unspecified (principal); R07.89 Other chest pain
CPT/HCPCS: 93005; 99282; 99283

== ENCOUNTER 2018-09-18 15:27 | Emergency (ER) | payer OTHER, MEDICAID, SELFPAY ==
[2018-05-10 17:40] VITALS: BMI 21.8
[2018-09-18 15:50] VITALS: BP 123/56; PULSE 85; RESP 20; O2SAT 99; BMI 25.0
--- NOTE | 2018-09-18 16:30 | ED.ANXIETY ---
HPI - Anxiety <Amy Brown PA-C - Last Filed: 09/18/18 22:51> General Chief Complaint: Anxiety Stated Complaint: NEED MEDICATION Time Seen by Provider: 09/18/18 16:07 Source: patient and family Mode of arrival: ambulatory Limitations: no limitations History of Present Illness HPI narrative: This 37-year-old female was sent here by her PCP today to get Seroquel for tonight and in the morning. She has an anxiety disorder with panic attacks for which she was using t.i.d. benzodiazepines and alcohol long-term. She has discontinued these and was admitted to [facility] recently, discharged on Tuesday. She was taking 50 mg of Seroquel t.i.d. there and also hydroxyzine at night for nightmares and this was helping a lot. She saw her PCP today as she has not been sleeping again and had not been able to get medication through her insurance. She did take a 25 mg dose of Seroquel last night and got a little bit of sleep. She apparently was unable to get this authorized until tomorrow, so PCP sent her here to get doses of medication. She states that she is not suicidal, and wants to get back to work and to her life, and that the medication was helping her. She states that she did not have side effects, including not having any drowsiness on the Seroquel, but Vistaril did help her sleep. She does have a follow-up appointment with [facility] tomorrow. Related Data Previous Rx's Medication Instructions Recorded azelastine-fluticasone 137 mcg-50 1 spray NASAL BID #23 gram 06/09/18 mcg/spray nasal spray prochlorperazine maleate 10 mg 10 mg PO Q8HP PRN #30 tab 08/21/18 tablet ranitidine 150 mg tablet 150 mg PO DAILY #90 tab 08/28/18 hydroxyzine pamoate 25 mg PO BEDTIME #1 cap 09/18/18 quetiapine 50 mg PO DAILY #1 tab 09/18/18 quetiapine 50 mg tablet 50 mg PO BID #60 tab 09/18/18 hydroxyzine HCl 25 mg tablet See Label Instructions PO QID PRN 09/19/18 #60 tab Allergies Allergy/AdvReac Type Severity Reaction Status Date / Time Penicillins [PENICILLINS] Allergy Unknown Gastrointestinal Verified 09/18/18 15:55 Upset metoclopramide [From REGLAN] AdvReac Intermediate NAUSEA Verified 09/18/18 15:55 morphine [MORPHINE] AdvReac Intermediate HALLUCANATI Verified 09/18/18 15:55 ONS epinephrine [EPINEPHRINE] AdvReac Unknown PANIC Verified 09/18/18 15:55 ATTACK Review of Systems <Amy Brown PA-C - Last Filed: 09/18/18 22:51> Review of Systems All systems reviewed & are unremarkable except as noted in HPI and below Exam <Amy Brown PA-C - Last Filed: 09/18/18 22:51> Narrative Exam Narrative: GENERAL APPEARANCE: Patient sitting comfortably, anxious, but in no distress. LUNGS: Clear to auscultation bilaterally. HEART: Rate and rhythm regular without murmur, normal S1 and S2, no S3 or S4. NEUROLOGIC: Patient is alert, oriented, reasonable historian, normal coordination Initial Vital Signs Initial Vital Signs: Vital Signs Pulse Rate 85 09/18/18 15:50 Respiratory Rate 20 09/18/18 15:50 Blood Pressure 123/56 L 09/18/18 15:50 Pulse Oximetry 99 09/18/18 15:50 <Josefina Su DO - Last Filed: 09/19/18 08:51> Initial Vital Signs Initial Vital Signs: Vital Signs Pulse Rate 85 09/18/18 15:50 Respiratory Rate 20 09/18/18 15:50 Blood Pressure 123/56 L 09/18/18 15:50 Pulse Oximetry 99 09/18/18 15:50 Course <Amy Brown PA-C - Last Filed: 09/18/18 22:51> Additional Information: Patient's primary care provider sent her here solely to get medication for today and tomorrow morning. She has been unable to fill this as her insurance will not let her get even a temporary supply. I spoke with our pharmacy here and they were unable to dispense a 2nd dose for her while pharmacies were open since we do not have an outpatient pharmacy. I wrote her prescriptions for a tablet of Vistaril as well as a dose of Seroquel for this evening and tomorrow morning, and she will try to fill with [facility]. Orders Ordered: Discontinued Medications Hydroxyzine Pamoate (Vistaril) 25 mg PO NOW ONE Stop: 09/18/18 16:55 Last Admin: 09/18/18 18:10 Dose: Quetiapine Fumarate (Seroquel) 25 mg PO NOW ONE Stop: 09/18/18 16:31 Last Admin: 09/18/18 18:10 Dose: Quetiapine Fumarate (Seroquel) 50 mg PO NOW ONE Stop: 09/18/18 16:55 Last Admin: 09/18/18 18:10 Dose: Quetiapine Fumarate (Seroquel) 50 mg PO NOW ONE Stop: 09/18/18 16:58 Last Admin: 09/18/18 17:00 Dose: 50 mg Vital Signs - 8 hr 09/18/18 15:50 Pulse Rate 85 Respiratory Rate 20 Blood Pressure 123/56 L Pulse Oximetry 99 <Josefina Su DO - Last Filed: 09/19/18 08:51> Orders Ordered: Discontinued Medications Hydroxyzine Pamoate (Vistaril) 25 mg PO NOW ONE Stop: 09/18/18 16:55 Last Admin: 09/18/18 18:10 Dose: Quetiapine Fumarate (Seroquel) 25 mg PO NOW ONE Stop: 09/18/18 16:31 Last Admin: 09/18/18 18:10 Dose: Quetiapine Fumarate (Seroquel) 50 mg PO NOW ONE Stop: 09/18/18 16:55 Last Admin: 09/18/18 18:10 Dose: Quetiapine Fumarate (Seroquel) 50 mg PO NOW ONE Stop: 09/18/18 16:58 Last Admin: 09/18/18 17:00 Dose: 50 mg Vital Signs - 8 hr 09/18/18 15:50 Pulse Rate 85 Respiratory Rate 20 Blood Pressure 123/56 L Pulse Oximetry 99 Discharge Plan Departure Patient Disposition: Home Clinical Impression: Anxiety disorder Discharge Date/Time: 09/18/18 18:14 Interventions: ED Discharge Assessment Last Done: 09/18/18 18:14 Instructions: Anxiety and Panic Attacks (Alternative Therapy), DI for Anxiety -- Adult Activity Restrictions/Additional Instructions: You have had a 50 mg dose of Seroquel today, the same as you were taking when hospitalized last week. You can take 50 mg again at in the morning as you were previously. I have also prescribed you a dose of Vistaril (hydroxyzine) since that was helping you sleep previously. Please follow up at [facility] tomorrow as you have already planned and sweet pickle maker your prescriptions to continue. Please return here if you have any acutely worsening symptoms, and follow up with your PCP as planned. Thank you for your patience with the long wait in our busy emergency department today. Prescriptions: New hydroxyzine pamoate 25 mg capsule 25 mg PO BEDTIME Qty: 1 RF: 0 quetiapine 50 mg tablet 50 mg PO DAILY Qty: 1 RF: 0 No Action prochlorperazine maleate 10 mg tablet 10 mg PO Q8HP PRN (Reason: nausea and vomiting) Qty: 30 RF: 0 ranitidine HCl 150 mg tablet 150 mg PO DAILY Qty: 90 RF: 0 quetiapine 50 mg tablet 50 mg PO BID Qty: 60 RF: 1 hydroxyzine HCl 25 mg tablet See Label Instructions PO QID PRN (Reason: anxiety) Qty: 60 RF: 0 azelastine-fluticasone 137-50 mcg/spray spray,non-aerosol 1 spray NASAL BID Qty: 23 RF: 0 Referrals: Justyna Bolanos DO [Primary Care Provider] - <Josefina Su DO - Last Filed: 09/19/18 08:51> Cosign ED Attending Karolature Attestation: I was immediately available in the department for consultation. Documentation has been reviewed. I agree with assessment and plan.
[2018-09-18] MEDS: QUETIAPINE 25 MG TABLET 50 MG PO (17:00)
--- NOTE | 2018-09-18 17:10 | ED_ITS ---
HPI - Anxiety <Amy Brown PA-C - Last Filed: 09/18/18 22:51> General Chief Complaint: Anxiety Stated Complaint: NEED MEDICATION Time Seen by Provider: 09/18/18 16:07 Source: patient and family Mode of arrival: ambulatory Limitations: no limitations History of Present Illness HPI narrative: This 37-year-old female was sent here by her PCP today to get Seroquel for tonight and in the morning. She has an anxiety disorder with panic attacks for which she was using t.i.d. benzodiazepines and alcohol long- term. She has discontinued these and was admitted to [facility] recently , discharged on Tuesday. She was taking 50 mg of Seroquel t.i.d. there and also hydroxyzine at night for nightmares and this was helping a lot. She saw her PCP today as she has not been sleeping again and had not been able to get medication through her insurance. She did take a 25 mg dose of Seroquel last night and got a little bit of sleep. She apparently was unable to get this authorized until tomorrow, so PCP sent her here to get doses of medication. She states that she is not suicidal, and wants to get back to work and to her life, and that the medication was helping her. She states that she did not have side effects, including not having any drowsiness on the Seroquel, but Vistaril did help her sleep. She does have a follow-up appointment with [facility] tomorrow. Related Data Previous Rx's Medication Instructions Recorded azelastine-fluticasone 137 mcg-50 1 spray NASAL BID #23 gram 06/09/18 mcg/spray nasal spray prochlorperazine maleate 10 mg 10 mg PO Q8HP PRN #30 tab 08/21/18 tablet ranitidine 150 mg tablet 150 mg PO DAILY #90 tab 08/28/18 hydroxyzine pamoate 25 mg PO BEDTIME #1 cap 09/18/18 quetiapine 50 mg PO DAILY #1 tab 09/18/18 quetiapine 50 mg tablet 50 mg PO BID #60 tab 09/18/18 hydroxyzine HCl 25 mg tablet See Label Instructions PO QID PRN 09/19/18 #60 tab Allergies Allergy/AdvReac Type Severity Reaction Status Date / Time Penicillins [PENICILLINS] Allergy Unknown Gastrointestinal Verified 09/18/18 15: 55 Upset metoclopramide [From REGLAN] AdvReac Intermediate NAUSEA Verified 09/18/18 15:55 morphine [MORPHINE] AdvReac Intermediate HALLUCANATI Verified 09/18/18 15:55 ONS epinephrine [EPINEPHRINE] AdvReac Unknown PANIC Verified 09/18/18 15:55 ATTACK Review of Systems <Amy Brown PA-C - Last Filed: 09/18/18 22:51> Review of Systems All systems reviewed & are unremarkable except as noted in HPI and below Exam <Amy Brown PA-C - Last Filed: 09/18/18 22:51> Narrative Exam Narrative: GENERAL APPEARANCE: Patient sitting comfortably, anxious, but in no distress. LUNGS: Clear to auscultation bilaterally. HEART: Rate and rhythm regular without murmur, normal S1 and S2, no S3 or S4. NEUROLOGIC: Patient is alert, oriented, reasonable historian, normal coordination Initial Vital Signs Initial Vital Signs: Vital Signs Pulse Rate 85 09/18/18 15:50 Respiratory Rate 20 09/18/18 15:50 Blood Pressure 123/56 L 09/18/18 15:50 Pulse Oximetry 99 09/18/18 15:50 <Josefina Su DO - Last Filed: 09/19/18 08:51> Initial Vital Signs Initial Vital Signs: Vital Signs Pulse Rate 85 09/18/18 15:50 Respiratory Rate 20 09/18/18 15:50 Blood Pressure 123/56 L 09/18/18 15:50 Pulse Oximetry 99 09/18/18 15:50 Course <Amy Brown PA-C - Last Filed: 09/18/18 22:51> Additional Information: Patient's primary care provider sent her here solely to get medication for today and tomorrow morning. She has been unable to fill this as her insurance will not let her get even a temporary supply. I spoke with our pharmacy here and they were unable to dispense a 2nd dose for her while pharmacies were open since we do not have an outpatient pharmacy. I wrote her prescriptions for a tablet of Vistaril as well as a dose of Seroquel for this evening and tomorrow morning, and she will try to fill with [facility]. Orders Ordered: Discontinued Medications Hydroxyzine Pamoate (Vistaril) 25 mg PO NOW ONE Stop: 09/18/18 16:55 Last Admin: 09/18/18 18:10 Dose: Quetiapine Fumarate (Seroquel) 25 mg PO NOW ONE Stop: 09/18/18 16:31 Last Admin: 09/18/18 18:10 Dose: Quetiapine Fumarate (Seroquel) 50 mg PO NOW ONE Stop: 09/18/18 16:55 Last Admin: 09/18/18 18:10 Dose: Quetiapine Fumarate (Seroquel) 50 mg PO NOW ONE Stop: 09/18/18 16:58 Last Admin: 09/18/18 17:00 Dose: 50 mg Vital Signs - 8 hr 09/18/18 15:50 Pulse Rate 85 Respiratory Rate 20 Blood Pressure 123/56 L Pulse Oximetry 99 <Josefina Su DO - Last Filed: 09/19/18 08:51> Orders Ordered: Discontinued Medications Hydroxyzine Pamoate (Vistaril) 25 mg PO NOW ONE Stop: 09/18/18 16:55 Last Admin: 09/18/18 18:10 Dose: Quetiapine Fumarate (Seroquel) 25 mg PO NOW ONE Stop: 09/18/18 16:31 Last Admin: 09/18/18 18:10 Dose: Quetiapine Fumarate (Seroquel) 50 mg PO NOW ONE Stop: 09/18/18 16:55 Last Admin: 09/18/18 18:10 Dose: Quetiapine Fumarate (Seroquel) 50 mg PO NOW ONE Stop: 09/18/18 16:58 Last Admin: 09/18/18 17:00 Dose: 50 mg Vital Signs - 8 hr 09/18/18 15:50 Pulse Rate 85 Respiratory Rate 20 Blood Pressure 123/56 L Pulse Oximetry 99 Discharge Plan Departure Patient Disposition: Home Clinical Impression: Anxiety disorder Discharge Date/Time: 09/18/18 18:14 Interventions: ED Discharge Assessment Last Done: 09/18/18 18:14 Instructions: Anxiety and Panic Attacks (Alternative Therapy), DI for Anxiety - - Adult Activity Restrictions/Additional Instructions: You have had a 50 mg dose of Seroquel today, the same as you were taking when hospitalized last week. You can take 50 mg again at in the morning as you were previously. I have also prescribed you a dose of Vistaril (hydroxyzine) since that was helping you sleep previously. Please follow up at [facility] tomorrow as you have already planned and picker tender your prescriptions to continue. Please return here if you have any acutely worsening symptoms, and follow up with your PCP as planned. Thank you for your patience with the long wait in our busy emergency department today. Prescriptions: New hydroxyzine pamoate 25 mg capsule 25 mg PO BEDTIME Qty: 1 RF: 0 quetiapine 50 mg tablet 50 mg PO DAILY Qty: 1 RF: 0 No Action prochlorperazine maleate 10 mg tablet 10 mg PO Q8HP PRN (Reason: nausea and vomiting) Qty: 30 RF: 0 ranitidine HCl 150 mg tablet 150 mg PO DAILY Qty: 90 RF: 0 quetiapine 50 mg tablet 50 mg PO BID Qty: 60 RF: 1 hydroxyzine HCl 25 mg tablet See Label Instructions PO QID PRN (Reason: anxiety) Qty: 60 RF: 0 azelastine-fluticasone 137-50 mcg/spray spray,non-aerosol 1 spray NASAL BID Qty: 23 RF: 0 Referrals: Justyna Bolanos DO [Primary Care Provider] - <Josefina Su DO - Last Filed: 09/19/18 08:51> Cosign ED Attending Karolature Attestation: I was immediately available in the department for consultation. Documentation has been reviewed. I agree with assessment and plan.
== END 2018-09-18 18:14 | disposition home or self-care (01) ==
PROVIDERS: Emergency Provider Internal Medicine; PCP Family Medicine
DX: F41.9 Anxiety disorder, unspecified (principal)
CPT/HCPCS: 99282; 99283

== ENCOUNTER 2018-09-22 15:44 | Emergency (ER) | payer OTHER, MEDICAID, SELFPAY ==
[2018-05-10 17:40] VITALS: BMI 21.8
[2018-09-22 15:49] VITALS: BP 123/80; PULSE 101; RESP 22; TEMP 37.4; O2SAT 100; BMI 23.5
[2018-09-22 18:00] VITALS: BP 124/88; PULSE 97; RESP 20; O2SAT 97
--- NOTE | 2018-09-22 18:05 | CM.SWNOTE ---
ED COMPRESSOR SERVICE TECHNICIAN NOTE Presenting problem: Pt is a 37 yo female presenting to the ED with severe anxiety. ARCHITECT met with pt who was visibly shaking. She stated that she has been unable to eat since ( 1 day ago) and is either shaking or sleeping. Pt was very tearful, and stated that she was completely overwhelmed. She was recently at [facility]. She stated that she felt better while there, but did not have follow up when she left. Pt stated that she was given an appt for [facility], but in reality this was for the walk-in clinic at 8AM and was concerned that she would go and not be seen. Pt was seen by Dr Whyte (PCP, but stated that her PCP is not longer willing to see her. It was not clear exactly what occurred as pt said she was told she violated her pain contract, but said she did not have one. SI/HI She reported that she did not think she could go on like this. Pt mentioned that if she did not feel better she would stick a gun in her mouth. ARCHITECT inquired about guns in the home and pt said she asked a friend to take them out of her home, so she does not have access to guns at this time. Pt denied HI. 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 She stated that she stopped drinking the day she went to [facility], but relapsed this AM as she needed to sleep and could not stop shaking enough to sleep. She reported that her doctor discontinued her anxiety medication on Tuesday and has been taking this medicaiton for years. It is possible that pt's current shakiness is a sign of medication withdrawal. Plan Plan discussed with provider. Pt will be prescribed medication to help her get through the weekend. She will be given a pamphlet for [facility] which includes the 16/05 crisis number. She will also be encouraged to go to [facility] for the walk in clinic appointment so she can get connected with behavioral health services. Pt is aware of the crisis line and also knows that if her symptoms do not improve that she can return to the ED.
[2018-09-22] MEDS: LORazepam 0.5 MG TABLET 1 MG PO (18:11)
--- NOTE | 2018-09-22 18:14 | PC.NURSE ---
pt tells of being on a form of benzo's for a few yrs, then was given more recently when she quit drinking while at a facility in [facility]. pt was told tuesday that she wouldn't be getting more of those medications. her last dose was tuesday. pt states i have to do something to make this stop or i'm going to put a gun in my mouth bella in case management in to see pt.
--- NOTE | 2018-09-22 18:42 | ED_ITS ---
HPI - Anxiety <DELMI Greer - Last Filed: 09/22/18 22:29> General Chief Complaint: Anxiety Stated Complaint: chest pain, panic, hands numb Time Seen by Provider: 09/22/18 17:18 Source: patient Mode of arrival: ambulatory Limitations: no limitations History of Present Illness HPI narrative: 37-year-old female with history of anxiety and anxiety attacks here for anxiety attack today. She has been taking lorazepam a for over a year for her symptoms. She reports that just recently this week she stopped taking the lorazepam. She states that she no longer has a primary care provider that prescribed them for her. She feels that she may have quit the Ativan to quickly. She denies any suicidal ideation. She denies any homicidal ideation. She would like to have for future mental Healthcare. Related Data Home Medications Medication Instructions Recorded Confirmed divalproex 500 mg PO DAILY 09/22/18 09/22/18 gabapentin 300 mg PO TID 09/22/18 09/22/18 hydroxyzine pamoate 25 - 50 mg PO Q6H PRN 09/22/18 09/22/18 lorazepam 1 mg PO TID 09/22/18 09/22/18 propranolol 10 mg PO BID 09/22/18 09/22/18 Previous Rx's Medication Instructions Recorded azelastine-fluticasone 137 mcg-50 1 spray NASAL BID #23 gram 06/09/18 mcg/spray nasal spray ranitidine 150 mg tablet 150 mg PO DAILY #90 tab 08/28/18 quetiapine 50 mg tablet 50 mg PO BID #60 tab 09/18/18 lorazepam 1 mg PO TID PRN #20 tab 09/22/18 Allergies Allergy/AdvReac Type Severity Reaction Status Date / Time Penicillins [PENICILLINS] Allergy Unknown Gastrointestinal Verified 09/22/18 15: 49 Upset metoclopramide [From REGLAN] AdvReac Intermediate NAUSEA Verified 09/22/18 15:49 morphine [MORPHINE] AdvReac Intermediate HALLUCANATI Verified 09/22/18 15:49 ONS epinephrine [EPINEPHRINE] AdvReac Unknown PANIC Verified 09/22/18 15:49 ATTACK Review of Systems <DELMI Greer - Last Filed: 09/22/18 22:29> Constitutional Denies chills, Denies fever(s), Denies lethargy and Denies weakness Eyes Denies change in vision, Denies eye discharge, Denies irritation and Denies loss of vision ENT Ears, Nose, Mouth, and Throat: Denies change in voice, Denies neck pain and Denies sore throat Cardiovascular Denies chest pain, Denies irregular heart rhythm, Denies lightheadedness, Denies palpitations, Denies dyspnea, Denies dyspnea on exertion and Denies orthopnea Respiratory Denies cough, Denies dyspnea, Denies dyspnea on exertion and Denies wheezing Gastrointestinal Gastrointestinal: Denies abdominal pain, Denies change in bowel habits, Denies diarrhea, Denies nausea and Denies vomiting Genitourinary Denies hematuria, Denies flank pain, Denies urinary incontinence and Denies urinary urgency Musculoskeletal Denies neck pain Integumentary/Breasts Denies pruritus, Denies erythema, Denies rash and Denies wounds Neurologic Denies confusion, Denies loss of vision and Denies weakness Psychiatric Denies anxiety, Denies confusion, Denies depression, Denies homicidal ideation and Denies suicidal ideation Endocrine Denies palpitations Hematologic/Lymphatic Denies easy bruising Allergic/Immunologic Denies wheezing Exam <DELMI Greer - Last Filed: 09/22/18 22:29> Initial Vital Signs Initial Vital Signs: Vital Signs Temperature 99.3 F 09/22/18 15:49 Pulse Rate 101 H 09/22/18 15:49 Respiratory Rate 22 09/22/18 15:49 Blood Pressure 123/80 09/22/18 15:49 Pulse Oximetry 100 09/22/18 15:49 Const General: cooperative and well developed Nutritional Appearance: well nourished Orientation: alert, awake, oriented x3 and not confused [facility] Mouth: oral mucosae normal and moist mucous membranes Eyes Conjunctivae: conjunctivae normal Sclera: sclerae normal Pupils: PERRL EOM: EOM intact bilaterally Neck Neck: normal visual inspection, trachea midline, No lymphadenopathy, No midline deformity and No JVD Lymphatic: No lymphedema Chest Chest: normal inspection of the chest Resp Effort & Inspection: normal respiratory effort, able to speak in complete sentences, no respiratory distress and no use of accessory muscles Auscultation: clear to auscultation bilaterally, no rales, no rhonchi and no wheezes Cardio Rate: regular rate Rhythm: regular rhythm Heart Sounds: no click, no gallops, no murmurs and no rubs GI Inspection: non-distended Palpation: soft, no hepatosplenomegaly, No guarding, No pulsatile mass and No tender Auscultation: normal bowel sounds Back/Spine/Pelvis Back: No CVA tenderness Skin General: no rashes or lesions noted, No jaundice and No petechiae Neuro General: alert, oriented x3, gait normal and no focal motor deficits Speech: speech normal Extrem General: full ROM, no clubbing, cyanosis or edema, no pedal edema and no calf tenderness Psych Appearance: well kempt Mental Status: mental status grossly normal Attitude: cooperative Thought Content: normal and suicidality Judgment: judgment good <Josefina Su DO - Last Filed: 09/23/18 03:14> Initial Vital Signs Initial Vital Signs: Vital Signs Temperature 99.3 F 09/22/18 15:49 Pulse Rate 101 H 09/22/18 15:49 Respiratory Rate 22 09/22/18 15:49 Blood Pressure 123/80 09/22/18 15:49 Pulse Oximetry 100 09/22/18 15:49 Course <DELMI Greer - Last Filed: 09/22/18 22:29> Orders Ordered: Discontinued Medications Lorazepam (Ativan) 1 mg PO NOW ONE Stop: 09/22/18 18:02 Last Admin: 09/22/18 18:11 Dose: 1 mg Vital Signs - 8 hr 09/22/18 20:07 Pulse Rate 79 Respiratory Rate 18 Blood Pressure [Left Arm] 105/60 Pulse Oximetry 99 <Josefina Su DO - Last Filed: 09/23/18 03:14> Orders Ordered: Discontinued Medications Lorazepam (Ativan) 1 mg PO NOW ONE Stop: 09/22/18 18:02 Last Admin: 09/22/18 18:11 Dose: 1 mg Vital Signs - 8 hr 09/22/18 20:07 Pulse Rate 79 Respiratory Rate 18 Blood Pressure [Left Arm] 105/60 Pulse Oximetry 99 MDM - Anxiety <DELMI Greer - Last Filed: 09/22/18 22:29> Lab Data Point of Care Testing Breathalizer 0 MDM Narrative Medical decision making narrative: the patient was given Ativan in the emergency room which helped her symptoms. She is given a prescription for Ativan to cover her for the next few days. She is to follow up with [facility] next week. Patient to call the number on the pamphlet provided to schedule follow-up appointment and also find resources for mental health care. For any worsening symptoms return to the emergency r <Josefina Su DO - Last Filed: 09/23/18 03:14> Lab Data Point of Care Testing Breathalizer 0 ECG Data Attestation: I personally reviewed and interpreted this ECG as follows: Prior ECG tracings: available for review Interpretation: Normal sinus rhythm rate 100 appear interval [address] changes no T-wave inversions similar to previous EKG a few days ago Discharge Plan Departure Patient Disposition: Home Clinical Impression: Anxiety Discharge Date/Time: 09/22/18 20:30 Interventions: ED Discharge Assessment Last Done: 09/22/18 20:43 Instructions: DI for Anxiety -- Adult Activity Restrictions/Additional Instructions: sinus symptoms presents as anxiety exacerbated by recent stopping of long- term benzodiazepine use. you are prescribed a small amount of lorazepam to help in the next few days. Call [facility] at the number provided to schedule a follow-up appointment next week. Recommend of talking with mental health to find a long-term anxiety medication not a benzodiazepine recommend also a benzodiazepine taper. for any worsening symptoms return to the emergency room. Prescriptions: New lorazepam 1 mg tablet 1 mg PO TID PRN (Reason: anxiety) Qty: 20 RF: 0 No Action ranitidine HCl 150 mg tablet 150 mg PO DAILY Qty: 90 RF: 0 quetiapine 50 mg tablet 50 mg PO BID Qty: 60 RF: 1 azelastine-fluticasone 137-50 mcg/spray spray,non-aerosol 1 spray NASAL BID Qty: 23 RF: 0 propranolol 10 mg tablet 10 mg PO BID RF: 0 divalproex 500 mg tablet extended release 24 hr 500 mg PO DAILY RF: 0 gabapentin 300 mg capsule 300 mg PO TID RF: 0 lorazepam 1 mg tablet 1 mg PO TID RF: 0 hydroxyzine pamoate 25 mg capsule 25 - 50 mg PO Q6H PRN (Reason: Anxiety) RF: 0 <Josefina Su DO - Last Filed: 09/23/18 03:14> Cosign ED Attending Shelley Attestation: I was immediately available in the department for consultation. Documentation has been reviewed. I agree with assessment and plan.
[2018-09-22 20:07] VITALS: BP 105/60; PULSE 79; RESP 18; O2SAT 99
== END 2018-09-22 20:30 | disposition home or self-care (01) ==
PROVIDERS: Emergency Provider Nurse Practitioner Family
DX: F41.9 Anxiety disorder, unspecified (principal)
CPT/HCPCS: 82075; 93005; 99283; 99284

== ENCOUNTER 2018-09-27 11:36 | Emergency (ER) | payer OTHER, MEDICAID, SELFPAY ==
[2018-05-10 17:40] VITALS: BMI 21.8
[2018-09-27 11:52] VITALS: BP 121/69; PULSE 102; RESP 18; TEMP 36.6; O2SAT 97
--- NOTE | 2018-09-27 11:52 | ED.ANXIETY ---
HPI - Anxiety <Amy Brown PA-C - Last Filed: 09/27/18 21:17> General Chief Complaint: Anxiety Stated Complaint: PANIC,DETOXING Time Seen by Provider: 09/27/18 11:51 Source: patient Mode of arrival: ambulatory Limitations: no limitations History of Present Illness HPI narrative: This 38-year-old female returns to ED due to persistent anxiety and constantly feeling like she has a panic attack. She states that Seroquel has not been working so she stopped taking it. She states that she was given a prescription for lorazepam last time she was here, but unable to be seen at [facility] by a prescriber for another 6 days, so was trying to make this last by taking 1 per day. She states that I can not function, shower, or eat. She states that her stomach has been upset, typically she will have nausea with her panic attacks but she has vomited 10 times since early this morning she says. She states that she has a urinary urgency sensation but no frequency, dysuria or hematuria. No new fever. No new chest pain or dyspnea. Her friend who is with her states that she did okay for a day or to, slept a lot, had a good day, then panic symptoms started to return again after she was last here and have been persistent. She admits that she has had some suicidal ideation. She states that she does have a gun in the house and has had thoughts of using it. Related Data Home Medications Medication Instructions Recorded Confirmed hydroxyzine pamoate 25 - 50 mg PO Q6H PRN 09/22/18 09/22/18 propranolol 10 mg PO BID 09/22/18 09/22/18 Previous Rx's Medication Instructions Recorded azelastine-fluticasone 137 mcg-50 1 spray NASAL BID #23 gram 06/09/18 mcg/spray nasal spray ranitidine 150 mg tablet 150 mg PO DAILY #90 tab 08/28/18 quetiapine 50 mg tablet 50 mg PO BID #60 tab 09/18/18 lorazepam 1 mg PO TID PRN #20 tab 09/22/18 clonazepam 1 mg PO Q12H #14 tab 09/27/18 promethazine 25 mg PO Q6H PRN #7 tab 09/27/18 Allergies Allergy/AdvReac Type Severity Reaction Status Date / Time Penicillins [PENICILLINS] Allergy Unknown Gastrointestinal Verified 09/22/18 15:49 Upset metoclopramide [From REGLAN] AdvReac Intermediate NAUSEA Verified 09/22/18 15:49 morphine [MORPHINE] AdvReac Intermediate HALLUCANATI Verified 09/22/18 15:49 ONS epinephrine [EPINEPHRINE] AdvReac Unknown PANIC Verified 09/22/18 15:49 ATTACK Review of Systems <Amy Brown PA-C - Last Filed: 09/27/18 21:17> Review of Systems All systems reviewed & are unremarkable except as noted in HPI and below Exam <Amy Brown PA-C - Last Filed: 09/27/18 21:17> Initial Vital Signs Initial Vital Signs: Vital Signs Temperature 97.8 F 09/27/18 11:52 Pulse Rate 102 H 09/27/18 11:52 Respiratory Rate 18 09/27/18 11:52 Blood Pressure 121/69 09/27/18 11:52 Pulse Oximetry 97 09/27/18 11:52 GENERAL APPEARANCE: Patient tearful, anxious, in NAD HEENT: PERRL, EOMI, no scleral icterus NECK: Supple LUNGS: Clear to auscultation bilaterally. HEART: Rate and rhythm regular, normal S1 and S2, no S3 or S4. ABDOMEN: Soft, nontender, nondistended, bowel sounds present x 4 quadrants, no masses palpable EXTREMITIES: No edema, no cyanosis DERMATOLOGIC: No jaundice or exanthem NEUROLOGIC: Alert and oriented with normal speech and coordination <Josefina Su DO - Last Filed: 09/28/18 07:33> Initial Vital Signs Initial Vital Signs: Vital Signs Temperature 97.8 F 09/27/18 11:52 Pulse Rate 102 H 09/27/18 11:52 Respiratory Rate 18 09/27/18 11:52 Blood Pressure 121/69 09/27/18 11:52 Pulse Oximetry 97 09/27/18 11:52 Course <Amy Brown PA-C - Last Filed: 09/27/18 21:17> Additional Information: patient is feeling markedly improved after fluids, Compazine, and 1 dose of clonazepam. she has not had any vomiting since arrival. She has met with our renal social worker and states she does not feel unsafe or like a threat to herself if she feels like she does now and not in a constant state of panic. She has asked her friend who accompanied her today to remove the gun from her house, which she believes is unloaded. Consulting renal social worker/care management (Sandi) has been in contact with [facility] to confirm appointments, as well as with [facility] who will contact patient tonight and daily until her appointment. after discussion with patient, she has taken clonazepam in the past and is clearly having issues with lorazepam wearing office well as concerned about running out of it. Explained that clonazepam is a longer-acting medication, offered to change this out if she would like (she has 13 pills of her Ativan prescription left and with her today, which is consistent with her history). She is agreeable with this. advised that it can make her sleepy and not to drive while using. She is agreeable and states if it is too sedating, she knows to break it in half but does think she needs 1 mg dose to control her symptoms. Reassured her that getting off of benzodiazepines can happen but will take time, typically months, and she will need to work regularly with her provider to gradually taper as well as find effective maintenance medications. She is agreeable with this plan and would like to be discharged home. She agreed to return if any acutely worsening symptoms again or feeling suicidal Orders Ordered: Discontinued Medications Clonazepam (Klonopin) 1 mg PO NOW ONE Stop: 09/27/18 12:13 Last Admin: 09/27/18 13:34 Dose: 1 mg Sodium Chloride (Normal Saline 0.9%) 1,000 mls @ 1,000 mls/hr IV BOLUS ONE Stop: 09/27/18 13:03 Last Infusion: 09/27/18 14:55 Dose: 0 mls/hr Admin: 09/27/18 13:05 Dose: 1,000 mls/hr Prochlorperazine (Compazine) 10 mg IV NOW ONE Stop: 09/27/18 12:10 Last Admin: 09/27/18 13:33 Dose: 10 mg Vital Signs - 8 hr 09/27/18 13:33 09/27/18 15:26 Temperature 97.8 F Pulse Rate 96 H 87 Respiratory Rate 17 Blood Pressure 125/65 114/68 Pulse Oximetry 98 <Josefina Su, DO - Last Filed: 09/28/18 07:33> Orders Ordered: Discontinued Medications Clonazepam (Klonopin) 1 mg PO NOW ONE Stop: 09/27/18 12:13 Last Admin: 09/27/18 13:34 Dose: 1 mg Sodium Chloride (Normal Saline 0.9%) 1,000 mls @ 1,000 mls/hr IV BOLUS ONE Stop: 09/27/18 13:03 Last Infusion: 09/27/18 14:55 Dose: 0 mls/hr Admin: 09/27/18 13:05 Dose: 1,000 mls/hr Prochlorperazine (Compazine) 10 mg IV NOW ONE Stop: 09/27/18 12:10 Last Admin: 09/27/18 13:33 Dose: 10 mg Vital Signs - 8 hr 09/27/18 13:33 09/27/18 15:26 Temperature 97.8 F Pulse Rate 96 H 87 Respiratory Rate 17 Blood Pressure 125/65 114/68 Pulse Oximetry 98 MDM - Anxiety <Amy Brown PA-C - Last Filed: 09/27/18 21:17> Lab Data Result diagrams: 09/27/18 13:00 09/27/18 13:00 Lab Results 09/27/18 09/27/18 09/27/18 Range/Units 12:40 13:00 13:00 WBC 10.3 (4.5-11.0) X10^3/uL RBC 4.15 (4.0-5.2) X10^6/uL Hgb 13.3 (12.0-16.0) g/dL Hct 39.0 (36-46) % MCV 93.9 (80-100) fL MCH 32.1 (26-34) PG MCHC 34.2 (30-36) % RDW 12.9 (11.6-14.8) % Plt Count 284 (150-400) X10^3/uL Neut % (Auto) 83.7 H (50-75) % Lymph % (Auto) 12.2 L (25-40) % Ripley % (Auto) 3.2 (3-14) % Eos % (Auto) 0.2 L (2-4) % Baso % (Auto) 0.7 (0-2) % Neut # (Auto) 8600 H (4791-0841) /uL Sodium 140 (137-145) mmol/L Potassium 3.9 (3.4-5.1) mmol/L Chloride 104 (98-107) mmol/L Carbon Dioxide 25 (22-32) mmol/L BUN 9 (7-17) mg/dL Creatinine 0.80 (0.52-1.04) mg/dL Estimated GFR > 60.0 (>60) mL/min BUN/Creatinine Ratio 11.3 (6-22) Glucose 79 (70-100) mg/dL Calcium 9.0 (8.4-10.2) mg/dL Total Bilirubin 0.9 (0.2-1.3) mg/dL AST 22 (14-36) IU/L ALT 25 (9-52) IU/L Alkaline Phosphatase 52 (38-126) U/L Total Protein 7.3 (6.3-8.2) g/dL Albumin 4.1 (3.5-5.0) g/dL Globulin 3.2 (1.7-4.1) g/dL Albumin/Globulin Ratio 1.3 (1.0-2.8) Lipase 35 (23-300) U/L TSH (0.47-4.68) uIU/mL Urine Opiates Screen Negative (Negative) Ur Oxycodone Screen Negative (Negative) Urine Methadone Screen Negative (Negative) Ur Barbiturates Screen Negative (Negative) U Tricyclic Antidepress Negative (Negative) Ur Phencyclidine Scrn Negative (Negative) Ur Amphetamines Screen Negative (Negative) U Methamphetamines Scrn Negative (Negative) Ur MDMA Scrn (Ecstasy) Negative (Negative) U Benzodiazepines Scrn Positive H (Negative) Urine Cocaine Screen Negative (Negative) U Marijuana (THC) Screen Positive H (Negative) 09/27/18 Range/Units 13:00 WBC (4.5-11.0) X10^3/uL RBC (4.0-5.2) X10^6/uL Hgb (12.0-16.0) g/dL Hct (36-46) % MCV (80-100) fL MCH (26-34) PG MCHC (30-36) % RDW (11.6-14.8) % Plt Count (150-400) X10^3/uL Neut % (Auto) (50-75) % Lymph % (Auto) (25-40) % Ripley % (Auto) (3-14) % Eos % (Auto) (2-4) % Baso % (Auto) (0-2) % Neut # (Auto) (3411-7499) /uL Sodium (137-145) mmol/L Potassium (3.4-5.1) mmol/L Chloride (98-107) mmol/L Carbon Dioxide (22-32) mmol/L BUN (7-17) mg/dL Creatinine (0.52-1.04) mg/dL Estimated GFR (>60) mL/min BUN/Creatinine Ratio (6-22) Glucose (70-100) mg/dL Calcium (8.4-10.2) mg/dL Total Bilirubin (0.2-1.3) mg/dL AST (14-36) IU/L ALT (9-52) IU/L Alkaline Phosphatase (38-126) U/L Total Protein (6.3-8.2) g/dL Albumin (3.5-5.0) g/dL Globulin (1.7-4.1) g/dL Albumin/Globulin Ratio (1.0-2.8) Lipase (23-300) U/L TSH 0.66 (0.47-4.68) uIU/mL Urine Opiates Screen (Negative) Ur Oxycodone Screen (Negative) Urine Methadone Screen (Negative) Ur Barbiturates Screen (Negative) U Tricyclic Antidepress (Negative) Ur Phencyclidine Scrn (Negative) Ur Amphetamines Screen (Negative) U Methamphetamines Scrn (Negative) Ur MDMA Scrn (Ecstasy) (Negative) U Benzodiazepines Scrn (Negative) Urine Cocaine Screen (Negative) U Marijuana (THC) Screen (Negative) <Josefina Su, DO - Last Filed: 09/28/18 07:33> Lab Data Lab Results 09/27/18 09/27/18 09/27/18 Range/Units 12:40 13:00 13:00 WBC 10.3 (4.5-11.0) X10^3/uL RBC 4.15 (4.0-5.2) X10^6/uL Hgb 13.3 (12.0-16.0) g/dL Hct 39.0 (36-46) % MCV 93.9 (80-100) fL MCH 32.1 (26-34) PG MCHC 34.2 (30-36) % RDW 12.9 (11.6-14.8) % Plt Count 284 (150-400) X10^3/uL Neut % (Auto) 83.7 H (50-75) % Lymph % (Auto) 12.2 L (25-40) % Ripley % (Auto) 3.2 (3-14) % Eos % (Auto) 0.2 L (2-4) % Baso % (Auto) 0.7 (0-2) % Neut # (Auto) 8600 H (6308-3578) /uL Sodium 140 (137-145) mmol/L Potassium 3.9 (3.4-5.1) mmol/L Chloride 104 (98-107) mmol/L Carbon Dioxide 25 (22-32) mmol/L BUN 9 (7-17) mg/dL Creatinine 0.80 (0.52-1.04) mg/dL Estimated GFR > 60.0 (>60) mL/min BUN/Creatinine Ratio 11.3 (6-22) Glucose 79 (70-100) mg/dL Calcium 9.0 (8.4-10.2) mg/dL Total Bilirubin 0.9 (0.2-1.3) mg/dL AST 22 (14-36) IU/L ALT 25 (9-52) IU/L Alkaline Phosphatase 52 (38-126) U/L Total Protein 7.3 (6.3-8.2) g/dL Albumin 4.1 (3.5-5.0) g/dL Globulin 3.2 (1.7-4.1) g/dL Albumin/Globulin Ratio 1.3 (1.0-2.8) Lipase 35 (23-300) U/L TSH (0.47-4.68) uIU/mL Urine Opiates Screen Negative (Negative) Ur Oxycodone Screen Negative (Negative) Urine Methadone Screen Negative (Negative) Ur Barbiturates Screen Negative (Negative) U Tricyclic Antidepress Negative (Negative) Ur Phencyclidine Scrn Negative (Negative) Ur Amphetamines Screen Negative (Negative) U Methamphetamines Scrn Negative (Negative) Ur MDMA Scrn (Ecstasy) Negative (Negative) U Benzodiazepines Scrn Positive H (Negative) Urine Cocaine Screen Negative (Negative) U Marijuana (THC) Screen Positive H (Negative) 09/27/18 Range/Units 13:00 WBC (4.5-11.0) X10^3/uL RBC (4.0-5.2) X10^6/uL Hgb (12.0-16.0) g/dL Hct (36-46) % MCV (80-100) fL MCH (26-34) PG MCHC (30-36) % RDW (11.6-14.8) % Plt Count (150-400) X10^3/uL Neut % (Auto) (50-75) % Lymph % (Auto) (25-40) % Ripley % (Auto) (3-14) % Eos % (Auto) (2-4) % Baso % (Auto) (0-2) % Neut # (Auto) (2085-6132) /uL Sodium (137-145) mmol/L Potassium (3.4-5.1) mmol/L Chloride (98-107) mmol/L Carbon Dioxide (22-32) mmol/L BUN (7-17) mg/dL Creatinine (0.52-1.04) mg/dL Estimated GFR (>60) mL/min BUN/Creatinine Ratio (6-22) Glucose (70-100) mg/dL Calcium (8.4-10.2) mg/dL Total Bilirubin (0.2-1.3) mg/dL AST (14-36) IU/L ALT (9-52) IU/L Alkaline Phosphatase (38-126) U/L Total Protein (6.3-8.2) g/dL Albumin (3.5-5.0) g/dL Globulin (1.7-4.1) g/dL Albumin/Globulin Ratio (1.0-2.8) Lipase (23-300) U/L TSH 0.66 (0.47-4.68) uIU/mL Urine Opiates Screen (Negative) Ur Oxycodone Screen (Negative) Urine Methadone Screen (Negative) Ur Barbiturates Screen (Negative) U Tricyclic Antidepress (Negative) Ur Phencyclidine Scrn (Negative) Ur Amphetamines Screen (Negative) U Methamphetamines Scrn (Negative) Ur MDMA Scrn (Ecstasy) (Negative) U Benzodiazepines Scrn (Negative) Urine Cocaine Screen (Negative) U Marijuana (THC) Screen (Negative) Discharge Plan Departure Patient Disposition: Home Clinical Impression: Panic disorder, Suicidal ideation Discharge Date/Time: 09/27/18 15:27 Interventions: ED Discharge Assessment Last Done: 09/27/18 15:26 Instructions: DI for Anxiety -- Child Activity Restrictions/Additional Instructions: please take the clonazepam that I have prescribed for you twice daily (2nd dose late tonight around bedtime ). Remember that this is long-acting so should be effective for your symptoms taken twice daily. Please remember it can make you sleepy and not to drive. If you find it making you too sleepy, please break the tablets in half. I have given you a prescription to last until your mental health provider appointment on Tuesday. You can continue the promethazine as needed for nausea. Please return to the closest ED as we talked about if you are feeling acutely worse again. Prescriptions: New clonazepam 1 mg tablet 1 mg PO Q12H Qty: 14 RF: 0 promethazine 25 mg tablet 25 mg PO Q6H PRN (Reason: nausea and vomiting) Qty: 7 RF: 0 Discontinued divalproex 500 mg tablet extended release 24 hr 500 mg PO DAILY RF: 0 gabapentin 300 mg capsule 300 mg PO TID RF: 0 lorazepam 1 mg tablet 1 mg PO TID RF: 0 No Action ranitidine HCl 150 mg tablet 150 mg PO DAILY Qty: 90 RF: 0 quetiapine 50 mg tablet 50 mg PO BID Qty: 60 RF: 1 azelastine-fluticasone 137-50 mcg/spray spray,non-aerosol 1 spray NASAL BID Qty: 23 RF: 0 propranolol 10 mg tablet 10 mg PO BID RF: 0 hydroxyzine pamoate 25 mg capsule 25 - 50 mg PO Q6H PRN (Reason: Anxiety) RF: 0 lorazepam 1 mg tablet 1 mg PO TID PRN (Reason: anxiety) Qty: 20 RF: 0 Referrals: [facility] [Outside] Justyna Bolanos DO [Physician] - <Josefina Su DO - Last Filed: 09/28/18 07:33> [facility] ED Attending Shelley Attestation: I was immediately available in the department for consultation. Documentation has been reviewed. I agree with assessment and plan.
[2018-09-27 12:15] VITALS: BP 125/65; PULSE 96; RESP 15; O2SAT 99
--- NOTE | 2018-09-27 12:18 | ED_ITS ---
HPI - Anxiety <Amy Brown PA-C - Last Filed: 09/27/18 21:17> General Chief Complaint: Anxiety Stated Complaint: PANIC,DETOXING Time Seen by Provider: 09/27/18 11:51 Source: patient Mode of arrival: ambulatory Limitations: no limitations History of Present Illness HPI narrative: This 38-year-old female returns to ED due to persistent anxiety and constantly feeling like she has a panic attack. She states that Seroquel has not been working so she stopped taking it. She states that she was given a prescription for lorazepam last time she was here, but unable to be seen at [facility] by a prescriber for another 6 days, so was trying to make this last by taking 1 per day. She states that I can not function, shower , or eat. She states that her stomach has been upset, typically she will have nausea with her panic attacks but she has vomited 10 times since early this morning she says. She states that she has a urinary urgency sensation but no frequency, dysuria or hematuria. No new fever. No new chest pain or dyspnea. Her friend who is with her states that she did okay for a day or to, slept a lot , had a good day, then panic symptoms started to return again after she was last here and have been persistent. She admits that she has had some suicidal ideation. She states that she does have a gun in the house and has had thoughts of using it. Related Data Home Medications Medication Instructions Recorded Confirmed hydroxyzine pamoate 25 - 50 mg PO Q6H PRN 09/22/18 09/22/18 propranolol 10 mg PO BID 09/22/18 09/22/18 Previous Rx's Medication Instructions Recorded azelastine-fluticasone 137 mcg-50 1 spray NASAL BID #23 gram 06/09/18 mcg/spray nasal spray ranitidine 150 mg tablet 150 mg PO DAILY #90 tab 08/28/18 quetiapine 50 mg tablet 50 mg PO BID #60 tab 09/18/18 lorazepam 1 mg PO TID PRN #20 tab 09/22/18 clonazepam 1 mg PO Q12H #14 tab 09/27/18 promethazine 25 mg PO Q6H PRN #7 tab 09/27/18 Allergies Allergy/AdvReac Type Severity Reaction Status Date / Time Penicillins [PENICILLINS] Allergy Unknown Gastrointestinal Verified 09/22/18 15: 49 Upset metoclopramide [From REGLAN] AdvReac Intermediate NAUSEA Verified 09/22/18 15:49 morphine [MORPHINE] AdvReac Intermediate HALLUCANATI Verified 09/22/18 15:49 ONS epinephrine [EPINEPHRINE] AdvReac Unknown PANIC Verified 09/22/18 15:49 ATTACK Review of Systems <Amy Brown PA-C - Last Filed: 09/27/18 21:17> Review of Systems All systems reviewed & are unremarkable except as noted in HPI and below Exam <Amy Brown PA-C - Last Filed: 09/27/18 21:17> Initial Vital Signs Initial Vital Signs: Vital Signs Temperature 97.8 F 09/27/18 11:52 Pulse Rate 102 H 09/27/18 11:52 Respiratory Rate 18 09/27/18 11:52 Blood Pressure 121/69 09/27/18 11:52 Pulse Oximetry 97 09/27/18 11:52 GENERAL APPEARANCE: Patient tearful, anxious, in NAD HEENT: PERRL, EOMI, no scleral icterus NECK: Supple LUNGS: Clear to auscultation bilaterally. HEART: Rate and rhythm regular, normal S1 and S2, no S3 or S4. ABDOMEN: Soft, nontender, nondistended, bowel sounds present x 4 quadrants, no masses palpable EXTREMITIES: No edema, no cyanosis DERMATOLOGIC: No jaundice or exanthem NEUROLOGIC: Alert and oriented with normal speech and coordination <Josefina Su DO - Last Filed: 09/28/18 07:33> Initial Vital Signs Initial Vital Signs: Vital Signs Temperature 97.8 F 09/27/18 11:52 Pulse Rate 102 H 09/27/18 11:52 Respiratory Rate 18 09/27/18 11:52 Blood Pressure 121/69 09/27/18 11:52 Pulse Oximetry 97 09/27/18 11:52 Course <Amy Brown PA-C - Last Filed: 09/27/18 21:17> Additional Information: patient is feeling markedly improved after fluids, Compazine, and 1 dose of clonazepam. she has not had any vomiting since arrival. She has met with our social media sr strategy manager and states she does not feel unsafe or like a threat to herself if she feels like she does now and not in a constant state of panic. She has asked her friend who accompanied her today to remove the gun from her house, which she believes is unloaded. Consulting social media sr strategy manager/care management (Sandi) has been in contact with [facility] to confirm appointments, as well as with [facility] who will contact patient tonight and daily until her appointment. after discussion with patient, she has taken clonazepam in the past and is clearly having issues with lorazepam wearing office well as concerned about running out of it. Explained that clonazepam is a longer-acting medication, offered to change this out if she would like ( she has 13 pills of her Ativan prescription left and with her today, which is consistent with her history). She is agreeable with this. advised that it can make her sleepy and not to drive while using. She is agreeable and states if it is too sedating, she knows to break it in half but does think she needs 1 mg dose to control her symptoms. Reassured her that getting off of benzodiazepines can happen but will take time, typically months, and she will need to work regularly with her provider to gradually taper as well as find effective maintenance medications. She is agreeable with this plan and would like to be discharged home. She agreed to return if any acutely worsening symptoms again or feeling suicidal Orders Ordered: Discontinued Medications Clonazepam (Klonopin) 1 mg PO NOW ONE Stop: 09/27/18 12:13 Last Admin: 09/27/18 13:34 Dose: 1 mg Sodium Chloride (Normal Saline 0.9%) 1,000 mls @ 1,000 mls/hr IV BOLUS ONE Stop: 09/27/18 13:03 Last Infusion: 09/27/18 14:55 Dose: 0 mls/hr Admin: 09/27/18 13:05 Dose: 1,000 mls/hr Prochlorperazine (Compazine) 10 mg IV NOW ONE Stop: 09/27/18 12:10 Last Admin: 09/27/18 13:33 Dose: 10 mg Vital Signs - 8 hr 09/27/18 13:33 09/27/18 15:26 Temperature 97.8 F Pulse Rate 96 H 87 Respiratory Rate 17 Blood Pressure 125/65 114/68 Pulse Oximetry 98 <Josefina Su, DO - Last Filed: 09/28/18 07:33> Orders Ordered: Discontinued Medications Clonazepam (Klonopin) 1 mg PO NOW ONE Stop: 09/27/18 12:13 Last Admin: 09/27/18 13:34 Dose: 1 mg Sodium Chloride (Normal Saline 0.9%) 1,000 mls @ 1,000 mls/hr IV BOLUS ONE Stop: 09/27/18 13:03 Last Infusion: 09/27/18 14:55 Dose: 0 mls/hr Admin: 09/27/18 13:05 Dose: 1,000 mls/hr Prochlorperazine (Compazine) 10 mg IV NOW ONE Stop: 09/27/18 12:10 Last Admin: 09/27/18 13:33 Dose: 10 mg Vital Signs - 8 hr 09/27/18 13:33 09/27/18 15:26 Temperature 97.8 F Pulse Rate 96 H 87 Respiratory Rate 17 Blood Pressure 125/65 114/68 Pulse Oximetry 98 MDM - Anxiety <Amy Brown PA-C - Last Filed: 09/27/18 21:17> Lab Data Result diagrams: 09/27/18 13:00 09/27/18 13:00 Lab Results 09/27/18 09/27/18 09/27/18 Range/Units 12:40 13:00 13:00 WBC 10.3 (4.5-11.0) X10^3/uL RBC 4.15 (4.0-5.2) X10^6/uL Hgb 13.3 (12.0-16.0) g/dL Hct 39.0 (36-46) % MCV 93.9 (80-100) fL MCH 32.1 (26-34) PG MCHC 34.2 (30-36) % RDW 12.9 (11.6-14.8) % Plt Count 284 (150-400) X10^3/uL Neut % (Auto) 83.7 H (50-75) % Lymph % (Auto) 12.2 L (25-40) % Morrill % (Auto) 3.2 (3-14) % Eos % (Auto) 0.2 L (2-4) % Baso % (Auto) 0.7 (0-2) % Neut # (Auto) 8600 H (3859-2661) /uL Sodium 140 (137-145) mmol/L Potassium 3.9 (3.4-5.1) mmol/L Chloride 104 (98-107) mmol/L Carbon Dioxide 25 (22-32) mmol/L BUN 9 (7-17) mg/dL Creatinine 0.80 (0.52-1.04) mg/dL Estimated GFR > 60.0 (>60) mL/min BUN/Creatinine Ratio 11.3 (6-22) Glucose 79 (70-100) mg/dL Calcium 9.0 (8.4-10.2) mg/dL Total Bilirubin 0.9 (0.2-1.3) mg/dL AST 22 (14-36) IU/L ALT 25 (9-52) IU/L Alkaline Phosphatase 52 (38-126) U/L Total Protein 7.3 (6.3-8.2) g/dL Albumin 4.1 (3.5-5.0) g/dL Globulin 3.2 (1.7-4.1) g/dL Albumin/Globulin Ratio 1.3 (1.0-2.8) Lipase 35 (23-300) U/L TSH (0.47-4.68) uIU/mL Urine Opiates Screen Negative (Negative) Ur Oxycodone Screen Negative (Negative) Urine Methadone Screen Negative (Negative) Ur Barbiturates Screen Negative (Negative) U Tricyclic Antidepress Negative (Negative) Ur Phencyclidine Scrn Negative (Negative) Ur Amphetamines Screen Negative (Negative) U Methamphetamines Scrn Negative (Negative) Ur MDMA Scrn (Ecstasy) Negative (Negative) U Benzodiazepines Scrn Positive H (Negative) Urine Cocaine Screen Negative (Negative) U Marijuana (THC) Screen Positive H (Negative) 09/27/18 Range/Units 13:00 WBC (4.5-11.0) X10^3/uL RBC (4.0-5.2) X10^6/uL Hgb (12.0-16.0) g/dL Hct (36-46) % MCV (80-100) fL MCH (26-34) PG MCHC (30-36) % RDW (11.6-14.8) % Plt Count (150-400) X10^3/uL Neut % (Auto) (50-75) % Lymph % (Auto) (25-40) % Morrill % (Auto) (3-14) % Eos % (Auto) (2-4) % Baso % (Auto) (0-2) % Neut # (Auto) (9874-4819) /uL Sodium (137-145) mmol/L Potassium (3.4-5.1) mmol/L Chloride (98-107) mmol/L Carbon Dioxide (22-32) mmol/L BUN (7-17) mg/dL Creatinine (0.52-1.04) mg/dL Estimated GFR (>60) mL/min BUN/Creatinine Ratio (6-22) Glucose (70-100) mg/dL Calcium (8.4-10.2) mg/dL Total Bilirubin (0.2-1.3) mg/dL AST (14-36) IU/L ALT (9-52) IU/L Alkaline Phosphatase (38-126) U/L Total Protein (6.3-8.2) g/dL Albumin (3.5-5.0) g/dL Globulin (1.7-4.1) g/dL Albumin/Globulin Ratio (1.0-2.8) Lipase (23-300) U/L TSH 0.66 (0.47-4.68) uIU/mL Urine Opiates Screen (Negative) Ur Oxycodone Screen (Negative) Urine Methadone Screen (Negative) Ur Barbiturates Screen (Negative) U Tricyclic Antidepress (Negative) Ur Phencyclidine Scrn (Negative) Ur Amphetamines Screen (Negative) U Methamphetamines Scrn (Negative) Ur MDMA Scrn (Ecstasy) (Negative) U Benzodiazepines Scrn (Negative) Urine Cocaine Screen (Negative) U Marijuana (THC) Screen (Negative) <Josefina Su, DO - Last Filed: 09/28/18 07:33> Lab Data Lab Results 09/27/18 09/27/18 09/27/18 Range/Units 12:40 13:00 13:00 WBC 10.3 (4.5-11.0) X10^3/uL RBC 4.15 (4.0-5.2) X10^6/uL Hgb 13.3 (12.0-16.0) g/dL Hct 39.0 (36-46) % MCV 93.9 (80-100) fL MCH 32.1 (26-34) PG MCHC 34.2 (30-36) % RDW 12.9 (11.6-14.8) % Plt Count 284 (150-400) X10^3/uL Neut % (Auto) 83.7 H (50-75) % Lymph % (Auto) 12.2 L (25-40) % Morrill % (Auto) 3.2 (3-14) % Eos % (Auto) 0.2 L (2-4) % Baso % (Auto) 0.7 (0-2) % Neut # (Auto) 8600 H (4866-6483) /uL Sodium 140 (137-145) mmol/L Potassium 3.9 (3.4-5.1) mmol/L Chloride 104 (98-107) mmol/L Carbon Dioxide 25 (22-32) mmol/L BUN 9 (7-17) mg/dL Creatinine 0.80 (0.52-1.04) mg/dL Estimated GFR > 60.0 (>60) mL/min BUN/Creatinine Ratio 11.3 (6-22) Glucose 79 (70-100) mg/dL Calcium 9.0 (8.4-10.2) mg/dL Total Bilirubin 0.9 (0.2-1.3) mg/dL AST 22 (14-36) IU/L ALT 25 (9-52) IU/L Alkaline Phosphatase 52 (38-126) U/L Total Protein 7.3 (6.3-8.2) g/dL Albumin 4.1 (3.5-5.0) g/dL Globulin 3.2 (1.7-4.1) g/dL Albumin/Globulin Ratio 1.3 (1.0-2.8) Lipase 35 (23-300) U/L TSH (0.47-4.68) uIU/mL Urine Opiates Screen Negative (Negative) Ur Oxycodone Screen Negative (Negative) Urine Methadone Screen Negative (Negative) Ur Barbiturates Screen Negative (Negative) U Tricyclic Antidepress Negative (Negative) Ur Phencyclidine Scrn Negative (Negative) Ur Amphetamines Screen Negative (Negative) U Methamphetamines Scrn Negative (Negative) Ur MDMA Scrn (Ecstasy) Negative (Negative) U Benzodiazepines Scrn Positive H (Negative) Urine Cocaine Screen Negative (Negative) U Marijuana (THC) Screen Positive H (Negative) 09/27/18 Range/Units 13:00 WBC (4.5-11.0) X10^3/uL RBC (4.0-5.2) X10^6/uL Hgb (12.0-16.0) g/dL Hct (36-46) % MCV (80-100) fL MCH (26-34) PG MCHC (30-36) % RDW (11.6-14.8) % Plt Count (150-400) X10^3/uL Neut % (Auto) (50-75) % Lymph % (Auto) (25-40) % Morrill % (Auto) (3-14) % Eos % (Auto) (2-4) % Baso % (Auto) (0-2) % Neut # (Auto) (2728-9580) /uL Sodium (137-145) mmol/L Potassium (3.4-5.1) mmol/L Chloride (98-107) mmol/L Carbon Dioxide (22-32) mmol/L BUN (7-17) mg/dL Creatinine (0.52-1.04) mg/dL Estimated GFR (>60) mL/min BUN/Creatinine Ratio (6-22) Glucose (70-100) mg/dL Calcium (8.4-10.2) mg/dL Total Bilirubin (0.2-1.3) mg/dL AST (14-36) IU/L ALT (9-52) IU/L Alkaline Phosphatase (38-126) U/L Total Protein (6.3-8.2) g/dL Albumin (3.5-5.0) g/dL Globulin (1.7-4.1) g/dL Albumin/Globulin Ratio (1.0-2.8) Lipase (23-300) U/L TSH 0.66 (0.47-4.68) uIU/mL Urine Opiates Screen (Negative) Ur Oxycodone Screen (Negative) Urine Methadone Screen (Negative) Ur Barbiturates Screen (Negative) U Tricyclic Antidepress (Negative) Ur Phencyclidine Scrn (Negative) Ur Amphetamines Screen (Negative) U Methamphetamines Scrn (Negative) Ur MDMA Scrn (Ecstasy) (Negative) U Benzodiazepines Scrn (Negative) Urine Cocaine Screen (Negative) U Marijuana (THC) Screen (Negative) Discharge Plan Departure Patient Disposition: Home Clinical Impression: Panic disorder, Suicidal ideation Discharge Date/Time: 09/27/18 15:27 Interventions: ED Discharge Assessment Last Done: 09/27/18 15:26 Instructions: DI for Anxiety -- Child Activity Restrictions/Additional Instructions: please take the clonazepam that I have prescribed for you twice daily (2nd dose late tonight around bedtime ). Remember that this is long-acting so should be effective for your symptoms taken twice daily. Please remember it can make you sleepy and not to drive. If you find it making you too sleepy, please break the tablets in half. I have given you a prescription to last until your mental health provider appointment on Tuesday. You can continue the promethazine as needed for nausea. Please return to the closest ED as we talked about if you are feeling acutely worse again. Prescriptions: New clonazepam 1 mg tablet 1 mg PO Q12H Qty: 14 RF: 0 promethazine 25 mg tablet 25 mg PO Q6H PRN (Reason: nausea and vomiting) Qty: 7 RF: 0 Discontinued divalproex 500 mg tablet extended release 24 hr 500 mg PO DAILY RF: 0 gabapentin 300 mg capsule 300 mg PO TID RF: 0 lorazepam 1 mg tablet 1 mg PO TID RF: 0 No Action ranitidine HCl 150 mg tablet 150 mg PO DAILY Qty: 90 RF: 0 quetiapine 50 mg tablet 50 mg PO BID Qty: 60 RF: 1 azelastine-fluticasone 137-50 mcg/spray spray,non-aerosol 1 spray NASAL BID Qty: 23 RF: 0 propranolol 10 mg tablet 10 mg PO BID RF: 0 hydroxyzine pamoate 25 mg capsule 25 - 50 mg PO Q6H PRN (Reason: Anxiety) RF: 0 lorazepam 1 mg tablet 1 mg PO TID PRN (Reason: anxiety) Qty: 20 RF: 0 Referrals: [facility] Juan Ramon [Outside] Justyna Bolanos DO [Physician] - <Josefina Su DO - Last Filed: 09/28/18 07:33> [facility] ED Attending Shelley Attestation: I was immediately available in the department for consultation. Documentation has been reviewed. I agree with assessment and plan.
[2018-09-27] MEDS: SODIUM CHLORIDE 0.9% 1,000 ML 1000 ML IV (13:05)
[2018-09-27 13:16] LABS: Add Manual Diff / Slide Review NO; Basophils Percent Auto 0.7 % (0-2); Eosinophils Percent Auto 0.2 % (2-4); Hemoglobin 13.3 g/dL (12.0-16.0); Lymphocytes Percent Auto 12.2 % (25-40); Mean Corpuscular HGB Conc 34.2 % (30-36); Mean Corpuscular Hemoglobin 32.1 PG (26-34); Mean Corpuscular Volume 93.9 fL (80-100); Monocytes Percent Auto 3.2 % (3-14); Neutrophils Absolute Auto 8600 /uL (3000-5900); Neutrophils Percent Auto 83.7 % (50-75); Platelet Count 284 X10^3/uL (150-400); Red Blood Cell Count 4.15 X10^6/uL (4.0-5.2); Red Cell Distribution Width 12.9 % (11.6-14.8); White Blood Cell Count 10.3 X10^3/uL (4.5-11.0)
[2018-09-27 13:17] LABS: Urine Amphetamines Negative (Negative); Urine Barbiturates Negative (Negative); Urine Benzodiazepines Positive (Negative); Urine Cocaine Negative (Negative); Urine MDMA Negative (Negative); Urine Methadone Negative (Negative); Urine Methamphetamines Negative (Negative); Urine Morphine/Opi cutoff 2000 Negative (Negative); Urine Oxycodone Negative (Negative); Urine Phencyclidine Negative (Negative); Urine Tetrahydrocannabinol Positive (Negative); Urine Tricyclic Antidepressant Negative (Negative)
[2018-09-27 13:27] LABS: Alanine Aminotransferase 25 IU/L (9-52); Albumin 4.1 g/dL (3.5-5.0); Albumin Globulin Ratio 1.3 (1.0-2.8); Alkaline Phosphatase 52 U/L (38-126); Aspartate Aminotransferase 22 IU/L (14-36); BUN Creatinine Ratio 11.3 (6-22); Bilirubin Total 0.9 mg/dL (0.2-1.3); Blood Urea Nitrogen 9 mg/dL (7-17); Carbon Dioxide 25 mmol/L (22-32); Chloride 104 mmol/L (98-107); Estimated Glomerular Filt Rate > 60.0 mL/min (>60); Globulin 3.2 g/dL (1.7-4.1); Glucose 79 mg/dL (70-100); HEMOLYSIS < 15 (0-50); Lipase 35 U/L (23-300); Potassium 3.9 mmol/L (3.4-5.1); Sodium 140 mmol/L (137-145); Total Protein 7.3 g/dL (6.3-8.2)
[2018-09-27 13:33] VITALS: BP 125/65; PULSE 96
[2018-09-27] MEDS: PROCHLORPERAZINE 10 MG/2 ML VIAL IV (13:33)
[2018-09-27] MEDS: clonazePAM 0.5 MG TABLET 1 MG PO (13:34)
[2018-09-27 14:02] LABS: Thyroid Stimulating Hormone 0.66 uIU/mL (0.47-4.68)
--- NOTE | 2018-09-27 14:50 | PC.NURSE ---
1450- RN returned from lunch .. SW at BS talking to pt. pt. remains tearful but also cooperative and appropriate as she has been throughout stay
--- NOTE | 2018-09-27 14:51 | PC.NURSE ---
1330 - RN moves pt. to room 13 because she was loudly tearful and upsetting pt. in adjoining room. Pt. changed into paper scrubs for safety, pt. denies any current thoughts of suicide and wants to speak to SW. door to room 13 remains open and pt. cooperative and acting appropriately although remains tearful. No vomiting during ED stay thus far.
--- NOTE | 2018-09-27 15:12 | PC.NURSE ---
MANUAL MACHINIST shared the following appointment times with her: [facility] 10/02 at 1100 and provider appointment 10/03/18 at 1230 pm at the same location
[2018-09-27 15:26] VITALS: BP 114/68; PULSE 87; RESP 17; TEMP 36.6; O2SAT 98
--- NOTE | 2018-09-27 16:49 | CM.SWNOTE ---
SHELTERED WORKSHOP WORKER Note: Received phone call from ED staff indicating that patient requiring SHELTERED WORKSHOP WORKER consult for suicidal ideation. Patient with several visits to [facility] Emergency Department within the last few months requesting lorazepam. Reviewed previous ED notes. Patient with h/o ETOH and prescription drug abuse specifically lorazepam. Spoke with PAC/Amy Brown in Emergency Department. She reports that patient extremely anxious and is requesting prescription for lorazepam so that she does not run out before her outpatient appointment at [facility] next week. Patient told PAC that she was suicidal because of anxiety/panic over running out of medications. Patient also mentioned to PAC she had weapon in the home. SHELTERED WORKSHOP WORKER met with patient explained SHELTERED WORKSHOP WORKER role. Patient alert and oriented during visit. Patient with obvious anxiety at time of SHELTERED WORKSHOP WORKER visit. Patient reports that I'm sick of living like this. Patient attributes her suicidal thoughts to her withdrawal from medications and feeling hopeless. Patient reports to SHELTERED WORKSHOP WORKER I don't want to . Patient has been to [facility] this year to ETOH treatment. Patient felt it was helpful but has no desire to return to any inpatient facility. Patient reports appointment with [facility] provider and counselor next week. Patient hopes that PAC will provide her with script to last until her appointment with new provider. SHELTERED WORKSHOP WORKER called [facility] in [facility]. They confirmed that patient has appointment with counselor on 10-02 and provider on 10-03. No earlier appointments available. In addition, placed call to [facility] spoke with Carlos she confirms that patient in system and reports that [facility] team will check on patient via phone starting tonight. Patient in agreement to have [facility] for outreach if needed. In addition, patient plans to stay with her friend/Jeff upon release from [facility]. Patient placed call to Jeff and SHELTERED WORKSHOP WORKER discussed safety plan. Jeff in agreement that he will be with patient and that weapon will be removed from patient's residence. Patient reports that weapon not loaded. Discussed above safety plan with Madhav, CHRISTY, ABBY, , RN, patient support system, and patient all in agreement for patient to d/c with support/Jeff and follow up with outpatient appointments next week. In addition, ABBY/Amy Zapien discussed medication options. It was determined patient would be prescribed longer acting benzo to get her through until provider appointment. Patient had approximately 13 lorazepam's with her and in agreement to have those thrown away and new script for longer acting provided. P: Patient to follow up with [facility] for anxiety/panic attacks next week. Appointments already made and copy given to patient and scanned in EMR. ANUM Smith
== END 2018-09-27 15:27 | disposition home or self-care (01) ==
PROVIDERS: Emergency Provider Internal Medicine
DX: F41.0 Panic disorder [episodic paroxysmal anxiety] (principal); R45.851 Suicidal ideations
CPT/HCPCS: 36591; 80053; 80305; 83690; 84443; 85025; 96361; 96374; 99283; 99284; J0780

== ENCOUNTER → 2019-03-15 08:43 | Outpatient (CLI) | payer OTHER, MEDICAID, SELFPAY ==
[2018-05-10 17:40] VITALS: BMI 21.8
[2019-03-15 10:57] LABS: HCG Quantitative /Beta subunit < 2.39 mIU/mL
== END ==
PROVIDERS: Visit Provider Obstetrics & Gynecology
DX: N91.2 Amenorrhea, unspecified (principal)
CPT/HCPCS: 36415; 84702

== ENCOUNTER → 2020-05-14 10:41 | Outpatient (CLI) | payer OTHER, MEDICAID, SELFPAY ==
[2018-05-10 17:40] VITALS: BMI 21.8
[2020-05-16 00:36] LABS: COVID19 Sendout Not Detected (Not Detected)
== END ==
PROVIDERS: Visit Provider Physician Assistant
DX: J02.9 Acute pharyngitis, unspecified (principal); R11.2 Nausea with vomiting, unspecified; R51 Headache
CPT/HCPCS: 87070; 87147; 87635

== ENCOUNTER 2020-07-08 19:55 | Emergency (ER) | payer OTHER, MEDICAID, SELFPAY ==
[2018-05-10 17:40] VITALS: BMI 21.8
[2020-07-08 20:10] VITALS: BP 149/70; PULSE 94; RESP 18; TEMP 36.3; O2SAT 99
--- NOTE | 2020-07-08 20:51 | ED.WOUNDLAC ---
HPI - Wound/Laceration <DELMI Hill - Last Filed: 07/09/20 02:59> General Chief Complaint: Wound/Laceration Stated Complaint: lt hand cut Time Seen by Provider: 07/08/20 20:35 Source: patient Mode of arrival: Ambulatory Limitations: no limitations History of Present Illness HPI narrative: This is 39-year-old female, smoker, who presents to ED with chief complain of flap appearing laceration on non dominant volar aspect of thumb meta carpal region. Patient reports she sustain a laceration from a kitchen knife when she worked on potato. Last tetanus immunization 4 years ago. 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 Patient reports painful to palpate the site with controlled bleeding. Related Data Home Medications Medication Instructions Recorded Confirmed aripiprazole 5 mg tablet 5 mg PO DAILY 04/29/19 05/14/20 sertraline 50 mg tablet 50 mg PO DAILY 05/14/20 05/14/20 Allergies Allergy/AdvReac Type Severity Reaction Status Date / Time Penicillins [PENICILLINS] Allergy Unknown Gastrointestinal Verified 05/14/20 10:38 Upset metoclopramide [From REGLAN] AdvReac Intermediate NAUSEA Verified 05/14/20 10:38 morphine [MORPHINE] AdvReac Intermediate HALLUCANATI Verified 05/14/20 10:38 ONS epinephrine [EPINEPHRINE] AdvReac Unknown PANIC Verified 05/14/20 10:38 ATTACK Review of Systems <DELMI Hill - Last Filed: 07/09/20 02:59> Review of Systems Narrative: General: Denies fever, chills, fatigue, malaise, sweats. Respiratory: Denies dyspnea, cough, wheezing, hemoptysis, sputum. Cardiovascular: Denies chest pain, palpitations, orthopnea, edema. Musculoskeletal: Denies weakness, joint pain or bony pain. Skin: See HPI Neurologic: Denies weakness, headache, numbness, change in speech, confusion, seizures, incoordination. Psychiatric: No concerning psychosocial issues. 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 Head: normocephalic, atraumatic, no scalp lesions, non-tender. ENT: Hearing grossly intact. Nose without bleeding, purulent discharge. Airway patent. Neck/Thyroid: neck supple, full range of motion, no visible masses or meningeal signs. No JVD, non-tender without lymphadenopathy. Skin: Flap appearing laceration, 1 cm each side, shallow laceration which mostly approximated well at this time. No active bleeding. Heart: no clubbing, no cyanosis, no edema. Lungs: Breathing even and unlabored. No stridor. No accessory muscles used. Able to speak in full sentences. Chest: normal shape and expansion. Abdomen: non-obese, non-distended. Neurologic: alert and oriented. Cognitive exam, MEDICAL COLLECTIONS REPRESENTATIVE and PNS grossly intact on informal exam. Psych: good eye contact, normal affect. Initial Vital Signs Initial Vital Signs: Vital Signs Temperature 97.3 F L 07/08/20 20:10 Pulse Rate 94 H 07/08/20 20:10 Respiratory Rate 18 07/08/20 20:10 Blood Pressure 149/70 H 07/08/20 20:10 Pulse Oximetry 99 07/08/20 20:10 Extrem Left upper extremity: hand Details: neuromotor exam normal, neurosensory exam normal, vascular exam Details: radial pulse present and normal capillary refill, normal ROM of fingers and laceration (Base of the thumb in volar aspect 1 cm each in flap appearing) <Walter Ventura DO - Last Filed: 07/09/20 03:09> Initial Vital Signs Initial Vital Signs: Vital Signs Temperature 97.3 F L 07/08/20 20:10 Pulse Rate 94 H 07/08/20 20:10 Respiratory Rate 18 07/08/20 20:10 Blood Pressure 149/70 H 07/08/20 20:10 Pulse Oximetry 99 07/08/20 20:10 Procedures <DELMI Hill - Last Filed: 07/09/20 02:59> Laceration Repair Laceration 1: Site: hand (volar aspect of metacarpal of thumb) Side (If applicable): left Size (cm): 1 Description: flap Pre-repair: wound explored and irrigated extensively Skin layer closed with: dermabond Scores <DELMI Hill - Last Filed: 07/09/20 02:59> GCS [place] coma scale eye opening: Spontaneous Ugo coma scale verbal response: Orientated [place] coma scale motor response: Obey commands [place] coma scale total score: 15 Course <DELMI Hill - Last Filed: 07/09/20 02:59> Orders Ordered: Discontinued Medications Acetaminophen (Tylenol) 650 mg PO NOW ONE Stop: 07/08/20 20:55 Last Admin: 07/08/20 21:08 Dose: 650 mg Documented by: AMBER Ibuprofen (Advil) 400 mg PO NOW ONE Stop: 07/08/20 20:55 Last Admin: 07/08/20 21:08 Dose: 400 mg Documented by: AMBER Vital Signs Vital signs: Vital Signs - 8 hr 07/08/20 20:10 Temperature 97.3 F L Pulse Rate 94 H Respiratory Rate 18 Blood Pressure 149/70 H Pulse Oximetry 99 <Walter Ventura DO - Last Filed: 07/09/20 03:09> Orders Ordered: Discontinued Medications Acetaminophen (Tylenol) 650 mg PO NOW ONE Stop: 07/08/20 20:55 Last Admin: 07/08/20 21:08 Dose: 650 mg Documented by: AMBER Ibuprofen (Advil) 400 mg PO NOW ONE Stop: 07/08/20 20:55 Last Admin: 07/08/20 21:08 Dose: 400 mg Documented by: AMBER Vital Signs Vital signs: Vital Signs - 8 hr 07/08/20 20:10 Temperature 97.3 F L Pulse Rate 94 H Respiratory Rate 18 Blood Pressure 149/70 H Pulse Oximetry 99 [facility] - Wound/Laceration <Sanya DELMI Tamez - Last Filed: 07/09/20 02:59> Differential Diagnosis Differential diagnosis: Likely laceration Medical Records Attestation: I reviewed the patient's medical records. [facility] Narrative Medical decision making narrative: This is a 39-year-old female presents to ED with flap appearing small and relatively superficial laceration in left, non dominant hand, base of left thumb in volar aspect from a kitchen knife that she was using to cut potato. Patient has intact sensation with tender to palpation, intact mobility and circulation. Last tetanus immunization was updated within 4 years ago. Laceration was cleaned with Hibiclens soap and water. Laceration was repaired with Dermabond and Steri-Strips. Patient tolerated the procedure well and please see the procedural note. Return precautions were discussed including signs and symptoms for infection hand wound recheck in 2 days. Patient verbalized understanding and agreement with the treatment plan. Discharge Plan Departure Patient Disposition: Home Clinical Impression: Hand laceration Qualifiers: Encounter type: initial encounter Foreign body presence: without foreign body Laterality: left Qualified Code(s): S61.412A - Laceration without foreign body of left hand, initial encounter Discharge Date/Time: 07/08/20 21:24 Instructions: DI for Laceration Repair-Skin Glue Activity Restrictions/Additional Instructions: You have been diagnosed with [minor left hand laceration which has been repaired with Dermabond and Steri-Strips.]. What to do: *Take your medications as directed. You can take [id number] Tylenol and or Motrin as needed for discomfort. My Dermabond DC: Please do not get your wound soaked in the water until the laceration has healed. Keep your dressing intact for next 24 hrs. After then, you could remove your dressing, wash with soap and water. Pat dry with clean papertowel and dress it. Please avoid using oil based ointment, cream, lotion and etc since this may make dermabond lose and remove prematurely. Dermabond/Steri strips will come off in 5-7 days on its own. Do not peel this off or pick on it. You can change dressing as needed and daily. Please monitor for signs and symptoms for infection such as increasing redness, swelling, warmth, pain, fever, purulent discharge. If this occurs, please return to ED or follow up with your primary care physician since your wound may be infected. Please follow up with your primary care provider in 2-3 days for recheck wound. Please keep your wound clean, dry and intact all times. *Follow up with your primary care provider in 2-3 days, call for an appointment for wound recheck. Let them know you were seen in the ED and that we asked you to be seen in follow up. Prescriptions: No Action sertraline [Zoloft] 50 mg tablet 50 mg PO DAILY RF: 0 aripiprazole [Abilify] 5 mg tablet 5 mg PO DAILY RF: 0 Referrals: Clayton Duke [Primary Care Provider] - <Walter Ventura DO - Last Filed: 07/09/20 03:09> Cosign ED Attending Cosjosephature Attestation: Dr Ventura Co-Sign Statement: I was available for consultation during this patient's emergency department visit. This chart is signed by myself for administrative purposes only. I did not have direct contact with this patient during this visit. They were seen independently by the APC.
[2020-07-08] MEDS: ACETAMINOPHEN 325 MG TABLET 650 MG PO (21:08)
[2020-07-08] MEDS: IBUPROFEN 400 MG TABLET PO (21:08)
== END 2020-07-08 21:24 | disposition home or self-care (01) ==
PROVIDERS: Emergency Provider Nurse Practitioner Family; PCP Neuromusculoskeletal Medicine & OMM
DX: S61.412A Laceration without foreign body of left hand, initial encounter (principal); W26.0XXA Contact with knife, initial encounter
CPT/HCPCS: 99282; 99283

== ENCOUNTER → 2020-11-07 17:23 | Outpatient (CLI) | payer OTHER, MEDICAID, SELFPAY ==
[2018-05-10 17:40] VITALS: BMI 21.8
--- NOTE | 2020-11-07 17:24 | DI.MG.S_ITS ---
BILATERAL DIGITAL SCREENING MAMMOGRAM 3D/2D WITH CAD: 11/07/2020 CLINICAL: Routine screening. Family history of breast cancer. Comparison is made to exam dated: 04/13/2013 [facility]. The tissue of both breasts is heterogeneously dense. This may lower the sensitivity of mammography. Current study was also evaluated with a Computer Aided Detection (CAD) system. There is a possible new irregular equal density architectural distortion in the left breast at 1 o'clock middle depth. No other significant masses, calcifications, or other findings are seen in either breast. IMPRESSION: INCOMPLETE: NEEDS ADDITIONAL IMAGING EVALUATION The possible new irregular equal density architectural distortion in the left breast is indeterminate. Additional views with possible ultrasound are recommended. This exam was interpreted at Station ID: [id number]. NOTE: For mammograms, a report in lay terms will be sent to the patient. Approximately 15% of breast malignancies will not be visualized mammographically. In the management of a palpable breast mass, a negative mammogram must not discourage biopsy of a clinically suspicious lesion. Electronically Signed By: David parrish/julienne:11/10/2020 08:16:48 letter sent: Additional Imaging Needed ACR BI-RADS Category 0: Incomplete [id number]
== END ==
PROVIDERS: PCP Family Medicine; Referring Provider Family Medicine; Visit Provider Family Medicine
DX: Z12.31 Encounter for screening mammogram for malignant neoplasm of breast (principal); Z80.3 Family history of malignant neoplasm of breast
CPT/HCPCS: 77063; 77067

== ENCOUNTER → 2020-11-21 09:25 | Outpatient (CLI) | payer OTHER, MEDICAID, SELFPAY ==
[2018-05-10 17:40] VITALS: BMI 21.8
[2020-11-21 10:25] LABS: COVID19 -Nasal RAPID Negative (Negative)
== END ==
PROVIDERS: PCP Family Medicine; Visit Provider Specialist
DX: Z20.822 Contact with and (suspected) exposure to COVID-19 (principal)
CPT/HCPCS: 87635; C9803

== ENCOUNTER 2020-11-24 09:29 | Day surgery (SDC) | payer OTHER, MEDICAID, SELFPAY ==
[2018-05-10 17:40] VITALS: BMI 21.8
[2020-11-24] VITALS (9 sets, daily range): BP systolic 108–141; BP diastolic 66–89; PULSE 16–94; RESP 11–17; TEMP 36.2–36.4; O2SAT 96–100; BMI 29.3
--- NOTE | 2020-11-24 | PATH_ITS ---
[facility] Accession Number: [id number] . 01 Material submitted: . PART A: axillary tail of breast - RIGHT AXILLARY BREAST TISSUE PART B: flank - RIGHT FLANK MASS . 01 Clinical history: . SDC . 02 Diagnosis: A. Right Axillary Breast Tissue, Excision: Benign breast tissue with duct ectasia. Negative for atypical hyperplasia, in situ or invasive carcinoma. . B. Right Flank, Mass, Excision: Mature adipose tissue consistent with benign lipoma. [facility] 11/26/2020 1722 Local . 02 Electronically signed: . Elyssa Damon MD, Pathologist NPI- [id number] . 01 Gross description: . A. The specimen is received in formalin, labeled right axillary breast tissue and consists of a 6.5 x 6.5 x 2.5 cm robledo-yellow fragment of adipose tissue which is partially surfaced by a 5.5 x 1.5 cm robledo skin. The specimen is inked blue and sectioned to reveal robledo-yellow lobulated cut surfaces. Molecular Biology Scientist sections are submitted in cassettes A1-A3. B. The specimen is received in formalin, labeled right flank mass and consists of a 3.8 x 3.5 x 2.2 cm robledo-yellow fragment of adipose tissue which is inked blue and sectioned to reveal robledo-yellow lobulated and homogeneous cut surfaces. Molecular Biology Scientist sections are submitted in cassettes B1-B3. ([id number]) /MRV 11/25/2020 1319 Local . 02 Pathologist provided ICD-10: R19.00, Q83.8 . 02 CPT . 840791, 037160 Performed at: 01 [facility] [address] [place] [address] [address], [place], [place] [id number] MD Rudi Leyva MD Phone: [phone] Performed at: 02 [facility] [address] [place] [id number] MD Elyssa Damon MD Phone: [phone]
[2020-11-24] MEDS: LACTATED RINGERS 1,000 ML 42 ML IV (10:11)
--- NOTE | 2020-11-24 11:14 | PM.PREOP ---
Pre-operative Note COVID-19 COVID-19 status: Negative Result date/Date tested (Pos, Neg/Pending): 11/21/20 Interval Note History & Physical reviewed/Exam performed by Physician: Yes Changes to H&P: No
[2020-11-24] MEDS: CEFAZOLIN 2 GM/100 ML FROZ.PIGGY IV (11:57)
[2020-11-24] MEDS: BUPIVACAINE 0.5% (PF) VIAL 30 ML INJ (12:28)
--- NOTE | 2020-11-24 12:30 | SUR.OPER ---
Lateral on padded OR bed, head on pillow, gel axillary roll in place, bottom leg bent with gel pad under knee to foot, upper leg straight and supported with pillows. Upper arm supported by pillows and secured over bottom arm to padded arm board. Safety belt at hip, tape over blanket lower legs.
[2020-11-24] MEDS: HYDROCODONE/ACET 5/325 TABLET 1 TAB PO (13:45)
--- NOTE | 2020-11-24 13:56 | P.OP_ITS ---
Operative Date/Time/Diagnoses Date of procedure: 11/24/20 Time of procedure: 13:30 Pre-op diagnosis: Ectopic breast tissue right axilla. Right flank mass. Post-op diagnosis: same Procedure & Clinicians Procedure: Excision ectopic breast tissue measuring about 8 x 5 cm and excision of flank mass that was clinically a lipoma on removal that measured 4 x 3 cm. Same procedure as scheduled: Yes Indications: Patient with ectopic breast tissue and a symptomatic mass that she requested excision of Surgeon: Jose Frausto Click Yes if Unassisted: Yes Anesthesia Type: General Operative Notes Findings: Ectopic breast tissue removed staying out of the axilla and subfascial mass right flank Closure Type: primary Specimen(s): other (Ectopic breast tissue and mass) Prosthetic devices, grafts, tissues, transplants, or devices: None Estimated Blood Loss (mL): 10 Blood products transfused: none Procedure in detail: Patient was placed supine on the operating room table and underwent general LMA anesthesia. She was then turned in the lithotomy left side down position on a beanbag. She was appropriately padded. She was prepped and draped in the usual fashion. In each elliptical incision was made in the skin overlying the ectopic breast tissue. She had been marked preoperatively. Was carried through the is the the subcu to the level of the breast tissue was then excised down to the axillary fascia. Specimen was removed. Hemostasis was achieved with cautery. The space was closed with 3-0 Vicryl. The skin was closed running 4-0 Vicryl subcuticular stitch. Attention was then turned to the mass in the flank. Local anesthetic was infiltrated around it and a transverse incision made over it. It was carried down through superficial fascia to the level the mass which was excised without difficulty. The subQ was closed with interrupted 3-0 Vicryl. Skin was closed running 4-0 Vicryl subcuticular stitch and Steri-Strips. Steri-Strips were also applied to the 1st incision. Dressing s were applied the patient was undraped placed back on a stretcher extubated and taken the recovery area in good condition. Complications: none Post-operative Condition: stable Disposition: PACU
--- NOTE | 2020-11-24 14:15 | SUR.PHASEII ---
pt arrived to phase II via stretcher. pt sitting up in bed, alert and orientated x3. drsg's to surgical site observed to be c/d/i. pt denies any pain/discomfort at this time. bed in lowest position and call light given to pt. pt appears comfortable at this time.
== END 2020-11-24 14:30 | disposition home or self-care (01) ==
PROVIDERS: PCP Family Medicine; Referring Provider Specialist; Visit Provider Specialist
PROC: (CPT 19120; principal; 2020-11-24 11:15)
DX: Q83.8 Other congenital malformations of breast (principal); D17.1 Benign lipomatous neoplasm of skin and subcutaneous tissue of trunk; F17.210 Nicotine dependence, cigarettes, uncomplicated; E66.9 Obesity, unspecified
CPT/HCPCS: 19120; 21933; J0690; J1100; J2250; J2405; J2704; J3010

== ENCOUNTER → 2020-12-02 14:53 | Outpatient (CLI) | payer OTHER, MEDICAID, SELFPAY ==
[2018-05-10 17:40] VITALS: BMI 21.8
--- NOTE | 2020-12-02 | DI.MG.S_ITS ---
UNILATERAL LEFT DIGITAL DIAGNOSTIC MAMMOGRAM 3D/2D WITH ADDITIONAL VIEWS: 12/02/2020 CLINICAL: Additional evaluation requested from prior study. Comparison is made to exams dated: 11/07/2020 mammogram, 04/13/2013 mammogram, and 04/13/2013 mammogram - [facility]. The tissue of left breast is extremely dense, which lowers the sensitivity of mammography. There is possible architectural distortion in the left breast at 1 o'clock region middle depth. This is best seen on the LM view and not definitely seen on the CC view. This is less prominent. No other significant masses or calcifications are seen in the breast. IMPRESSION: INCOMPLETE: NEEDS ADDITIONAL IMAGING EVALUATION Possible architectural distortion in the left breast is indeterminate. A targeted ultrasound is recommended and will immediately follow. This exam was interpreted at Station ID: [id number]. NOTE: For mammograms, a report in lay terms will be sent to the patient. Approximately 15% of breast malignancies will not be visualized mammographically. In the management of a palpable breast mass, a negative mammogram must not discourage biopsy of a clinically suspicious lesion. Electronically Signed By: Christopher Puckett M.D. [facility]/:12/02/2020 17:15:32 ACR BI-RADS Category 0: Incomplete [id number]
--- NOTE | 2020-12-02 14:54 | DI.US.S_ITS ---
LIMITED ULTRASOUND OF LEFT BREAST: 12/02/2020 CLINICAL: Patient returns today to evaluate a focal asymmetry in the left breast. Comparison is made to exams dated: 12/02/2020 mammogram, 11/07/2020 mammogram, 04/13/2013 mammogram, 04/13/2013, and 04/13/2013 mammogram - [facility]. Color flow and real-time ultrasound of the left breast 1-3 o'clock, 6 o'clock, 9 o'clock, and retroareolar regions were performed. Levine scale images of the real-time examination were reviewed. No ultrasound correlate for the possible architectural distortion in the left breast. There is a benign 0.6 cm oval simple cyst in the left breast at 2 o'clock posterior depth. This oval simple cyst is anechoic with a well-defined boundary. This correlates as an incidental finding. Color flow imaging demonstrates that there is no vascularity present. IMPRESSION: PROBABLY BENIGN No ultrasound correlate for the possible architectural distortion in the left breast. A follow-up mammogram in 6 months is recommended to demonstrate stability. The 0.6 cm oval simple cyst in the left breast is benign. Exam findings were conveyed to the patient. This exam was interpreted at Station ID: [id number]. Electronically Signed By: Christopher Puckett M.D. [facility]/:12/02/2020 17:12:44 letter sent: Followup Recommended Ultrasound BI-RADS: 3 Probably benign
== END ==
PROVIDERS: PCP Family Medicine; Referring Provider Family Medicine; Visit Provider Family Medicine
DX: R92.8 Other abnormal and inconclusive findings on diagnostic imaging of breast (principal); N60.02 Solitary cyst of left breast; Z80.3 Family history of malignant neoplasm of breast
CPT/HCPCS: 76642; 77065; G0279

== ENCOUNTER → 2021-01-30 12:52 | Outpatient (CLI) | payer OTHER, MEDICAID, SELFPAY ==
[2018-05-10 17:40] VITALS: BMI 21.8
[2021-01-30] MEDS: COVID-19 VACC, Ad26(JANSSEN)/PF 0.5 ML IM (13:00)
== END ==
PROVIDERS: PCP Family Medicine; Visit Provider Internal Medicine
DX: Z23 Encounter for immunization (principal)
CPT/HCPCS: 0031A; 91303

== ENCOUNTER 2021-02-08 09:58 | Emergency (ER) | payer OTHER, MEDICAID, SELFPAY ==
[2018-05-10 17:40] VITALS: BMI 21.8
[2021-02-08 10:04] VITALS: BP 118/66; PULSE 87; RESP 16; TEMP 36.7; O2SAT 100; BMI 29.7
[2021-02-08 10:05] VITALS: PULSE 78; O2SAT 99
--- NOTE | 2021-02-08 10:22 | ED_ITS ---
HPI - Ear Problem General Chief complaint: Upper Respiratory Symptoms Stated complaint: ear jaw left side of face numbness Time Seen by Provider: 02/08/21 10:04 Source: patient Mode of arrival: Ambulatory Limitations: no limitations History of Present Illness HPI Narrative: This is a 40-year-old female comes in with complaint of left ear pain, jaw and cheek pain with tingling and numbness over that region. Patient has not had fevers. She is not appreciate swelling or redness or new rash. Patient states it has become quite uncomfortable she has been taking ibuprofen regularly around the clock. She has not had any drainage from the ear. She does not have any pain with movement of the ear itself. She has not had similar symptoms in the past. She has been afebrile. She has had a little bit of a headache. No vision changes. She has not any chest pain or shortness of breath. No nausea or vomiting. No other GI or urinary symptoms. Patient did receive her Fermín and Fermín COVID vaccine in the last week. She states she felt ill for about 5-6 days and has since improved. She does take medications for anxiety and mood. She denies any other medical issues. She states she is allergic to penicillin and she has GI symptoms with this. She does note that 1 of her on the posterior left lower jaw has been giving her some pain as well. Related Data Previous Rx's Medication Instructions Recorded oxycodone-acetaminophen [Percocet] See Rx Instructions .ROUTE 11/24/20 .COMPLEX PRN #20 tab alprazolam 0.5 mg tablet 0.5 mg PO TID PRN #90 tab 12/22/20 aripiprazole 5 mg tablet 5 mg PO DAILY #90 tab 12/22/20 sertraline 25 mg tablet 25 mg PO DAILY #90 tab 12/22/20 sertraline 50 mg tablet 100 mg PO DAILY #90 tab 12/22/20 clindamycin HCl 300 mg PO QID #40 cap 02/08/21 tramadol [Ultram] 50 mg PO Q6H PRN #7 tab 02/08/21 Allergies Allergy/AdvReac Type Severity Reaction Status Date / Time Penicillins [PENICILLINS] Allergy Unknown Gastrointestinal Verified 12/23/20 15:34 Upset metoclopramide [From REGLAN] AdvReac Intermediate NAUSEA Verified 12/23/20 15:34 morphine [MORPHINE] AdvReac Intermediate HALLUCANATI Verified 12/23/20 15:34 ONS epinephrine [EPINEPHRINE] AdvReac Unknown PANIC Verified 12/23/20 15:34 ATTACK Review of Systems Review of Systems ROS Unobtainable: All systems reviewed & are unremarkable except as noted in HPI and below Patient History Medical History Acne vulgaris Anxiety (11/24/17) Cellulitis Depression (09/01/11) Ectopic breast tissue Encounter for tobacco use cessation counseling Fibrocystic breast changes Gastroparesis (12/19/14) Hemorrhoids (09/01/11) Herpes simplex virus type 1 (HSV-1) dermatitis (09/01/11) History of ETOH abuse History of tobacco abuse Increased thirst Insomnia (05/05/17) Lipoma of axilla Lipoma of back Mild alcohol use disorder, in early remission (05/05/17) Nausea (12/19/14) Panic attack due to exceptional stress Polyuria Screening for breast cancer Screening for hyperlipidemia Subcutaneous mass Surgical menopause Tobacco abuse (09/01/11) Tubal occlusion Surgical History Encounter for Essure implantation (04/16/16) History of elective Status post dilation and curettage Social History household members: spouse and children Smoking Status: Current every day smoker alcohol intake: current substance use type: marijuana Smoking Status: Current every day smoker alcohol intake frequency: a few times a week Substance Use Type: marijuana Exam Narrative Exam Narrative: GEN: well nourished, well appearing female, alert and oriented x 3, patient appears to be in mild distress. HEENT: Atraumatic, pupils are equal round reactive to light, extraocular movements are intact, nares are clear, TMs are clear bilaterally with no fluid, canal is clear with no erythema or swelling, no tenderness with palpation of the pinna. No swelling or erythema of the face. No rash or skin changes noted. There is no conjunctival pallor. Throat is clear without any exudates, erythema, tonsillar enlargement or uvular deviation, patient does have 1 tooth missing on the posterior left. She indicates her molar on the most posterior left has some discomfort but there is no obvious erythema or fluid collection noted. HEART: Regular rate and rhythm without murmur, clicks, rubs. LUNGS:Lungs clear to auscultation, no wheezes, rales, crackles, chest moves symmetrically ABD:bowel sounds normal, soft, non-tender, no guarding, rebound, rigidity, no masses noted, no hepatosplenomegaly MSCL: Non-tender, full range of motion, normal gait NEURO:CN 2-12 intact, sensation normal SKIN: No erythema, rash, vesicles or skin changes are appreciated. Initial Vital Signs Initial Vital Signs: Vital Signs Temperature 98.0 F 02/08/21 10:04 Pulse Rate 87 02/08/21 10:04 Respiratory Rate 16 02/08/21 10:04 Blood Pressure 118/66 02/08/21 10:04 Pulse Oximetry 100 02/08/21 10:04 Scores GCS Ugo coma scale eye opening: Spontaneous Ugo coma scale verbal response: Orientated Ugo coma scale motor response: Obey commands Ugo coma scale total score: 15 Course Vital Signs Vital signs: Vital Signs - 8 hr 02/08/21 10:30 Pulse Rate 72 Pulse Oximetry 99 Medical Decision Making MDM Narrative Medical decision making narrative: Discussed with patient she does not have any signs of infection in her ear. Her symptoms could be secondary to dental pain which is referred she has appreciated some pain on her left posterior lower draw. Patient and I discussed doing course of antibiotics, short course of pain medication and follow-up with the dentist if she noticed more localization to the tooth. We did discuss that there is potential for trigeminal neuralgia or shingles. With shingles she may develop a rash in if she notes that she should be re-evaluated because the treatment would change from her current course. She did receive the Fermín and Fermín vaccine in the last week, she does not have any other symptoms that are highly suggestive for CSVT or other thrombosis. Discharge Plan Departure Patient Disposition: Home Clinical Impression: Left facial pain Activity Restrictions/Additional Instructions: Follow up with a dentist if you are not having any improvement of your symptoms. You may continue ibuprofen up to 800 mg every 8 hours. If is inadequate for pain control you may take 1-2 Ultram every 6 hours as needed for pain. Take antibiotics until completely gone. [facility] [place]. Please return if you have fevers greater 100.4 F, new redness, swelling or rash on her face that there is any small blisters or new skin changes, if you have swelling of the lips, mouth, airway, if you have rapidly worsened symptoms, persistent vomiting, chest pain or shortness of breath, severe headaches, swelling of her extremities other new or concerning symptoms. Prescriptions: New clindamycin HCl 300 mg capsule 300 mg PO QID Qty: 40 RF: 0 tramadol [Ultram] 50 mg tablet 50 mg PO Q6H PRN (Reason: pain) Qty: 7 RF: 0 No Action alprazolam 0.5 mg tablet 0.5 mg PO TID PRN (Reason: anxiety) Qty: 90 RF: 0 aripiprazole [Abilify] 5 mg tablet 5 mg PO DAILY Qty: 90 RF: 0 sertraline 25 mg tablet 25 mg PO DAILY Qty: 90 RF: 1 sertraline [Zoloft] 50 mg tablet 100 mg PO DAILY Qty: 90 RF: 1 oxycodone-acetaminophen [Percocet] 5-325 mg tablet See Rx Instructions .ROUTE .COMPLEX PRN (Reason: pain) Qty: 20 RF: 0 Referrals: Kamran Guevara DO [Primary Care Provider] -
[2021-02-08 10:30] VITALS: PULSE 72; O2SAT 99
== END 2021-02-08 10:45 | disposition home or self-care (01) ==
PROVIDERS: Emergency Provider Emergency Medicine; PCP Family Medicine
DX: R51.9 Headache, unspecified (principal)
CPT/HCPCS: 99281

== ENCOUNTER → 2022-01-25 07:58 | Outpatient (CLI) | payer OTHER, MEDICAID, SELFPAY ==
[2021-09-01 15:08] VITALS: BMI 21.8
[2022-01-25 08:36] LABS: Add Manual Diff / Slide Review NO; Basophils Absolute Auto 100 /uL (0-100); Basophils Percent Auto 0.5 % (0-2); Eosinophils Absolute Auto 100 /uL (0-450); Eosinophils Percent Auto 1.3 % (2-4); Hematocrit 39.2 % (36-46); Hemoglobin 13.6 g/dL (12.0-16.0); Lymphocytes Absolute Auto 1900 /uL (1100-4500); Lymphocytes Percent Auto 17.1 % (25-40); Mean Corpuscular HGB Conc 34.7 % (30-36); Mean Corpuscular Hemoglobin 30.5 PG (26-34); Mean Corpuscular Volume 88.1 fL (80-100); Monocytes Absolute Auto 500 /uL (0-900); Monocytes Percent Auto 4.5 % (3-14); Neutrophils Absolute Auto 8700 /uL (1500-7000); Neutrophils Percent Auto 76.6 % (50-75); Platelet Count 309 X10^3/uL (150-400); Red Blood Cell Count 4.45 X10^6/uL (4.0-5.2); Red Cell Distribution Width 13.2 % (11.6-14.8); White Blood Cell Count 11.4 X10^3/uL (4.5-11.0)
[2022-01-25 09:13] LABS: Alanine Aminotransferase 16 IU/L (<35); Albumin 3.9 g/dL (3.5-5.0); Albumin Globulin Ratio 1.2 (1.0-2.8); Alkaline Phosphatase 102 U/L (38-126); Aspartate Aminotransferase 22 IU/L (14-36); BUN Creatinine Ratio 25.3 (6-22); Bilirubin Total 0.4 mg/dL (0.2-1.3); Blood Urea Nitrogen 20 mg/dL (7-17); Calcium 9.3 mg/dL (8.4-10.2); Carbon Dioxide 22 mmol/L (22-32); Chloride 103 mmol/L (98-107); Cholesterol 162 mg/dL (140-199); Estimated Glomerular Filt Rate > 60.0 mL/min (>60); Globulin 3.3 g/dL (1.7-4.1); Glucose 107 mg/dL (70-100); HDL Cholesterol 62 mg/dL (40-60); HEMOLYSIS < 15 (0-50); LDL Cholesterol Calculated 56 mg/dL (<100); Potassium 4.4 mmol/L (3.4-5.1); Sodium 136 mmol/L (137-145); Total Protein 7.2 g/dL (6.3-8.2); Triglycerides 222 mg/dL (35-150)
[2022-01-25 09:29] LABS: Free T3, Triiodothyronine Free 3.39 pg/mL (2.77-5.27); Free T4, Direct Thyroxine 1.16 ng/dL (0.78-2.19)
[2022-01-25 09:31] LABS: Vitamin D 25 Hydroxy (D3) 25.5 ng/mL (30.0-100.0)
[2022-01-25 09:43] LABS: Thyroid Stimulating Hormone 1.33 uIU/mL (0.47-4.68)
[2022-01-25 10:05] LABS: Vitamin B12 703 pg/mL (239-931)
== END ==
PROVIDERS: PCP Family Medicine; Referring Provider Family Medicine; Visit Provider Family Medicine
DX: F43.29 Adjustment disorder with other symptoms (principal); R53.83 Other fatigue; T50.B95A Adverse effect of other viral vaccines, initial encounter; F51.05 Insomnia due to other mental disorder; F99 Mental disorder, not otherwise specified; F41.9 Anxiety disorder, unspecified
CPT/HCPCS: 36415; 80053; 80061; 82306; 82533; 82607; 84439; 84443; 84481; 85025

== ENCOUNTER 2022-02-02 08:41 | Emergency (ER) | payer OTHER, MEDICAID, SELFPAY ==
[2022-01-26 11:24] VITALS: BMI 21.8
[2022-02-02] VITALS (7 sets, daily range): BP systolic 120–140; BP diastolic 71–97; PULSE 68–85; RESP 12–24; TEMP 37.1; O2SAT 99–100; BMI 28.9
--- NOTE | 2022-02-02 08:48 | ED.CHESTPAIN ---
HPI - Chest Pain General Chief Complaint: Chest Pain Stated Complaint: Dizziness/nausea/loose stool/cp x2 days Time Seen by Provider: 02/02/22 08:47 History of Present Illness HPI narrative: 41-year-old female smoker with history of anxiety, insomnia, gastroparesis presents with various symptoms have been gradually worsening for the past few months. She states that she got quite ill after receiving a COVID vaccination, she then developed COVID-19 and has been having trouble ever since October. Her symptoms are widespread and include recurrent ear infections, left anterior chest pain, fatigue, nausea, vomiting, diarrhea and poor appetite. She feels worn down and is becoming dizzy upon standing and with minimal exertion. She is tearful and upset that she continues to decline despite multiple visits with her doctor. She denies any change in medications, recent travel, exposure to ill persons. She has had no fever but admits to frequent chills. Her chest pain is sharp and stabbing and seems to be worse with a deep breath. She denies any obvious radiation of her pain and there is no clear association with exertion. He has had no recent long distance travel, history of blood clot or cancer. Related Data Previous Rx's Medication Instructions Recorded ofloxacin 0.3 % ear drops 3 drp OTIC (EAR) BID #10 ml 01/28/17 sertraline 50 mg tablet (Zoloft) 100 mg PO DAILY #90 tab 10/29/21 aripiprazole 5 mg tablet (Abilify) 5 mg PO DAILY #90 tab 12/10/21 dextroamphetamine-amphetamine 5 mg 5 mg PO .COMPLEX #30 tab 12/23/21 tablet dextroamphetamine-amphetamine ER See Rx Instructions PO DAILY #60 12/23/21 10 mg 24hr capsule,extend release cap lisdexamfetamine 40 mg capsule 40 mg PO DAILY #90 cap 01/11/22 (Vyvanse) ondansetron HCl 4 mg tablet 4 mg PO Q8H PRN #60 tab 01/11/22 alprazolam 0.5 mg tablet 0.5 mg PO TID PRN #90 tab 01/22/22 Allergies Allergy/AdvReac Type Severity Reaction Status Date / Time Penicillins [PENICILLINS] Allergy Unknown Gastrointestinal Verified 01/26/22 10:36 Upset metoclopramide [From REGLAN] AdvReac Intermediate NAUSEA Verified 01/26/22 10:36 morphine [MORPHINE] AdvReac Intermediate HALLUCANATI Verified 01/26/22 10:36 ONS epinephrine [EPINEPHRINE] AdvReac Unknown PANIC Verified 01/26/22 10:36 ATTACK Review of Systems Review of Systems Narrative: GENERAL: Denies chills, fatigue, malaise, fever, sweats. HEENT: Denies sinus pain, ear pain, sore throat, difficulty swallowing, dizziness. RESPIRATORY: Denies dyspnea, cough, wheezing, hemoptysis, sputum. CARDIOVASCULAR: Denies chest pain, palpitations, orthopnea, edema, GASTROINTESTINAL: Denies nausea, vomiting, abdominal pain, diarrhea, constipation, melena. : Denies dysuria, frequency, incontinence, hematuria, urinary retention. MUSCULOSKELETAL: denies weakness, joint pain, or bony pain SKIN: Denies rash, skin lesions, or other NEUROLOGIC: Denies weakness, headache, numbness, change in speech, confusion, seizures, incoordination. PSYCHIATRIC: No concerning psychosocial issues. 12 point review of systems is negative except for those stated above Patient History Medical History (Updated 02/02/22 @ 10:59 by Fareed Acharya DO) Acne vulgaris ADHD (attention deficit hyperactivity disorder), combined type Anxiety (11/24/17) Arthralgia Breathing-related sleep disorder Cellulitis Cervical somatic dysfunction Chronic low back pain without sciatica Chronic neck pain Cranial somatic dysfunction Depression (09/01/11) Ectopic breast tissue Encounter for tobacco use cessation counseling Excessive daytime sleepiness Fatigue Fatigue after severe acute respiratory syndrome coronavirus 2 (SARS-CoV-2) vaccination Fibrocystic breast changes Gastroparesis (12/19/14) Hemorrhoids (09/01/11) Herpes simplex virus type 1 (HSV-1) dermatitis (09/01/11) History of ETOH abuse History of tobacco abuse Increased thirst Insomnia (05/05/17) Left foot pain Lipoma of axilla Lipoma of back Loud snoring Lumbar region somatic dysfunction Medication adverse effect Mild alcohol use disorder, in early remission (05/05/17) Nausea (12/19/14) Panic attack due to exceptional stress Pelvic somatic dysfunction Polyuria Sacral region somatic dysfunction Screening for breast cancer Screening for hyperlipidemia Segmental and somatic dysfunction of abdomen and other regions Segmental and somatic dysfunction of rib cage Somatic dysfunction of lower extremity Stress and adjustment reaction Subcutaneous mass Surgical menopause Thoracic region somatic dysfunction Tobacco abuse (09/01/11) Tubal occlusion Urinary, incontinence, stress female Surgical History Encounter for Essure implantation (04/16/16) History of elective Status post dilation and curettage Social History household members: spouse and children Smoking Status: Current every day smoker alcohol intake: current substance use type: marijuana Smoking Status: Current every day smoker alcohol intake frequency: a few times a week Substance Use Type: marijuana Exam Narrative Exam Narrative: GENERAL: [41] year old patient appears stated age. Well-developed patient, in mild distress. Anxious, tearful, clearly feeling unwell. No obvious respiratory distress, tachypnea, hypoxemia or increased work of breathing HEAD: Atraumatic. Normocephalic. EYES: Pupils equal round and reactive. Extraocular motions intact. No scleral icterus. No injection or drainage. ENT: Nose without bleeding, purulent drainage. Throat without erythema, tonsillar hypertrophy or exudate. Airway patent. NECK: Trachea midline. Non tender CARDIOVASCULAR: Regular rate and rhythm without murmurs, gallops, or rubs. RESPIRATORY: Clear to auscultation. Breath sounds equal bilaterally. No wheezes, rales, or rhonchi. GASTROINTESTINAL: Abdomen soft, non-tender, nondistended. EXTREMITIES: No edema or joint tenderness. BACK: Nontender without deformity or crepitance. No flank tenderness. NEURO: AOx3. SKIN: No rash or erythema of visible areas Initial Vital Signs Initial Vital Signs: Vital Signs Pulse Rate 83 02/02/22 08:49 Respiratory Rate 12 02/02/22 08:49 Blood Pressure 120/77 02/02/22 08:49 Pulse Oximetry 100 02/02/22 08:49 Course Orders Ordered: Discontinued Medications Sodium Chloride (Normal Saline 0.9%) 1,000 mls @ 1,000 mls/hr IV BOLUS ONE Stop: 02/02/22 09:54 Last Infusion: 02/02/22 10:46 Dose: 0 mls/hr Documented by: Admin: 02/02/22 09:32 Dose: 1,000 mls/hr Documented by: LISA Vital Signs Vital signs: Vital Signs - 8 hr 02/02/22 09:07 Temperature 98.7 F Pulse Rate 83 Respiratory Rate 16 Blood Pressure 120/77 Pulse Oximetry 100 MDM - Chest Pain Lab Data Result diagrams: 02/02/22 09:00 02/02/22 09:00 Labs: Lab Results 02/02/22 02/02/22 02/02/22 Range/Units 09:00 09:00 09:00 WBC 11.5 H (4.5-11.0) X10^3/uL RBC 4.51 (4.0-5.2) X10^6/uL Hgb 13.7 (12.0-16.0) g/dL Hct 39.8 (36-46) % MCV 88.2 (80-100) fL MCH 30.4 (26-34) PG MCHC 34.4 (30-36) % RDW 13.1 (11.6-14.8) % Plt Count 335 (150-400) X10^3/uL Neut % (Auto) 72.8 (50-75) % Lymph % (Auto) 20.1 L (25-40) % Prairie % (Auto) 4.4 (3-14) % Eos % (Auto) 1.8 L (2-4) % Baso % (Auto) 0.9 (0-2) % Neut # (Auto) 8400 H (3239-1491) /uL Lymph # (Auto) 2300 (5366-8179) /uL Prairie # (Auto) 500 (0-900) /uL Eos # (Auto) 200 (0-450) /uL Baso # (Auto) 100 (0-100) /uL ESR 6 (0-20) MM/HR D-Dimer < 200 (<230) ng/mL Sodium 137 (137-145) mmol/L Potassium 4.0 (3.4-5.1) mmol/L Chloride 104 (98-107) mmol/L Carbon Dioxide 23 (22-32) mmol/L BUN 10 (7-17) mg/dL Creatinine 0.79 (0.52-1.04) mg/dL Estimated GFR > 60.0 (>60) mL/min BUN/Creatinine Ratio 12.7 (6-22) Glucose 95 (70-100) mg/dL Calcium 9.4 (8.4-10.2) mg/dL Total Bilirubin 0.5 (0.2-1.3) mg/dL AST 24 (14-36) IU/L ALT 18 (<35) IU/L Alkaline Phosphatase 75 (38-126) U/L Total Creatine Kinase 39 (30-135) U/L CK-MB (CK-2) TNP CK-MB (CK-2) Rel Index TNP Troponin I < 0.012 (0.01-0.034) ng/mL C-Reactive Protein 1.4 H (<1.0) mg/dL NT-Pro-B Natriuret Pep 29 (<125) pg/mL Total Protein 7.7 (6.3-8.2) g/dL Albumin 4.2 (3.5-5.0) g/dL Globulin 3.5 (1.7-4.1) g/dL Albumin/Globulin Ratio 1.2 (1.0-2.8) Lipase 59 (23-300) U/L Procalcitonin 0.03 (<0.5) ng/mL SARS-CoV-2 (PCR) (Negative) Influenza A (RT-PCR) (NEGATIVE) Influenza B (RT-PCR) (NEGATIVE) 02/02/22 Range/Units 09:34 WBC (4.5-11.0) X10^3/uL RBC (4.0-5.2) X10^6/uL Hgb (12.0-16.0) g/dL Hct (36-46) % MCV (80-100) fL MCH (26-34) PG MCHC (30-36) % RDW (11.6-14.8) % Plt Count (150-400) X10^3/uL Neut % (Auto) (50-75) % Lymph % (Auto) (25-40) % Prairie % (Auto) (3-14) % Eos % (Auto) (2-4) % Baso % (Auto) (0-2) % Neut # (Auto) (9224-3491) /uL Lymph # (Auto) (6296-4028) /uL Prairie # (Auto) (0-900) /uL Eos # (Auto) (0-450) /uL Baso # (Auto) (0-100) /uL ESR (0-20) MM/HR D-Dimer (<230) ng/mL Sodium (137-145) mmol/L Potassium (3.4-5.1) mmol/L Chloride (98-107) mmol/L Carbon Dioxide (22-32) mmol/L BUN (7-17) mg/dL Creatinine (0.52-1.04) mg/dL Estimated GFR (>60) mL/min BUN/Creatinine Ratio (6-22) Glucose (70-100) mg/dL Calcium (8.4-10.2) mg/dL Total Bilirubin (0.2-1.3) mg/dL AST (14-36) IU/L ALT (<35) IU/L Alkaline Phosphatase (38-126) U/L Total Creatine Kinase (30-135) U/L CK-MB (CK-2) CK-MB (CK-2) Rel Index Troponin I (0.01-0.034) ng/mL C-Reactive Protein (<1.0) mg/dL NT-Pro-B Natriuret Pep (<125) pg/mL Total Protein (6.3-8.2) g/dL Albumin (3.5-5.0) g/dL Globulin (1.7-4.1) g/dL Albumin/Globulin Ratio (1.0-2.8) Lipase (23-300) U/L Procalcitonin (<0.5) ng/mL SARS-CoV-2 (PCR) Negative (Negative) Influenza A (RT-PCR) Flu a negative (NEGATIVE) Influenza B (RT-PCR) Flu b negative (NEGATIVE) Imaging Data Chest x-ray: Radiologist's Impression: [address] [address] XRay Report Signed Patient: Maria Guadalupe Woodruff MR#: [id number] : 1980 Acct:[id number] Age/Sex: 41 / F Date of Service: 02/02/22 Loc: ED Accession Number: [id number] ?? Procedure: XR chest 1V Ordering Provider: Fareed Acharya D.O. PROCEDURE:? XR CHEST 1V ? INDICATIONS:? chest pain ? TECHNIQUE:? One view of the chest was acquired.? ? COMPARISON:? None. ? FINDINGS:? ? Surgical changes and devices:? None.? ? Lungs and pleura:? Lungs are clear.? No pleural effusions or pneumothorax.? ? Mediastinum:? Mediastinal contours appear normal.? Heart size is normal.? ? Bones and chest wall:? No suspicious bony lesions.? Overlying soft tissues appear unremarkable.? ? IMPRESSION:? No acute cardiopulmonary findings. ? ? Dictated by: Kezia Roper M.D. on 02/02/2022 at 9:22 ? ? Approved by: Kezia Roper M.D. on 02/02/2022 at 9:23 ? ? MDM Narrative Medical decision making narrative: Patient has been having multiple, widespread symptoms for the past few months. She presents today because she was unable to work. She has a reassuring history, physical exam, labs, EKG and imaging. Her response to therapies is excellent, she walks out under her own power without difficulty. She has no pain, no shortness of breath and dizziness is gone. She is tolerating orals, return precautions given and questions answered to her apparent satisfaction Discharge Plan Departure Patient Disposition: Home Clinical Impression: Nausea & vomiting, Fatigue Instructions: DI for Atypical Chest Pain, DI for Fatigue Activity Restrictions/Additional Instructions: *You have been diagnosed with [fatigue, nausea and vomiting, atypical chest pain. As we discussed your physical exam and labs are very reassuring and there is no clear indication of a diagnosis that would require a specific intervention *What to do: *Please continue to take your regular medications as directed. [ ] New medication prescriptions sent to your pharmacy: [ ] [ ] New medication written as a paper prescription [ x] No new medications given *Please follow up with your primary care provider in 2-3 days, call for an appointment. Let them know you were seen in the Emergency Department and that we ask that you be seen in follow up. We will electronically transmit a record of today's note if your PCP is in our system *If you do not have a primary care provider please contact the [facility] Resource line at [phone]. They will ask some questions about your medical history and help get you set up with a doctor in the community. *Return to Emergency Department if you should have any new, worsening or concerning symptoms, such as [fever greater than 101 F, shaking chills, worsening pain, persistent vomiting or other bothersome symptoms] Prescriptions: No Action sertraline [Zoloft] 50 mg tablet 100 mg PO DAILY Qty: 90 1RF aripiprazole [Abilify] 5 mg tablet 5 mg PO DAILY Qty: 90 3RF ondansetron HCl 4 mg tablet 4 mg PO Q8H PRN (Reason: nausea and vomiting) Qty: 60 5RF Vyvanse 40 mg capsule 40 mg PO DAILY Qty: 90 0RF alprazolam 0.5 mg tablet 0.5 mg PO TID PRN (Reason: anxiety) Qty: 90 0RF ofloxacin 0.3 % drops 3 drp otic (ear) BID Qty: 10 0RF dextroamphetamine-amphetamine 10 mg capsule,extended release 24hr See Rx Instructions PO DAILY Qty: 60 0RF Rx Instructions: Take 1-2 capsules in the morning by mouth as needed for attention deficit dextroamphetamine-amphetamine 5 mg tablet 5 mg PO .COMPLEX Qty: 30 0RF Rx Instructions: 5 mg PO; in the afternoon as needed for attention deficit Referrals: Kamran Guevara DO [Primary Care Provider] -
--- NOTE | 2022-02-02 08:55 | DI.RAD.S_ITS ---
PROCEDURE: XR CHEST 1V INDICATIONS: chest pain TECHNIQUE: One view of the chest was acquired. COMPARISON: None. FINDINGS: Surgical changes and devices: None. Lungs and pleura: Lungs are clear. No pleural effusions or pneumothorax. Mediastinum: Mediastinal contours appear normal. Heart size is normal. Bones and chest wall: No suspicious bony lesions. Overlying soft tissues appear unremarkable. IMPRESSION: No acute cardiopulmonary findings. Dictated by: Kezia Roper M.D. on 02/02/2022 at 9:22 Approved by: Kezia Roper M.D. on 02/02/2022 at 9:23
[2022-02-02 09:07] LABS: Add Manual Diff / Slide Review NO; Basophils Absolute Auto 100 /uL (0-100); Basophils Percent Auto 0.9 % (0-2); Eosinophils Absolute Auto 200 /uL (0-450); Eosinophils Percent Auto 1.8 % (2-4); Hematocrit 39.8 % (36-46); Hemoglobin 13.7 g/dL (12.0-16.0); Lymphocytes Absolute Auto 2300 /uL (1100-4500); Lymphocytes Percent Auto 20.1 % (25-40); Mean Corpuscular HGB Conc 34.4 % (30-36); Mean Corpuscular Hemoglobin 30.4 PG (26-34); Mean Corpuscular Volume 88.2 fL (80-100); Monocytes Absolute Auto 500 /uL (0-900); Monocytes Percent Auto 4.4 % (3-14); Neutrophils Absolute Auto 8400 /uL (1500-7000); Neutrophils Percent Auto 72.8 % (50-75); Platelet Count 335 X10^3/uL (150-400); Red Blood Cell Count 4.51 X10^6/uL (4.0-5.2); Red Cell Distribution Width 13.1 % (11.6-14.8); White Blood Cell Count 11.5 X10^3/uL (4.5-11.0)
[2022-02-02 09:17] LABS: D Dimer < 200 ng/mL (<230)
[2022-02-02 09:20] LABS: Alanine Aminotransferase 18 IU/L (<35); Albumin 4.2 g/dL (3.5-5.0); Albumin Globulin Ratio 1.2 (1.0-2.8); Alkaline Phosphatase 75 U/L (38-126); Aspartate Aminotransferase 24 IU/L (14-36); BUN Creatinine Ratio 12.7 (6-22); Bilirubin Total 0.5 mg/dL (0.2-1.3); Blood Urea Nitrogen 10 mg/dL (7-17); C-Reactive Protein Quant 1.4 mg/dL (<1.0); Calcium 9.4 mg/dL (8.4-10.2); Carbon Dioxide 23 mmol/L (22-32); Chloride 104 mmol/L (98-107); Creatine Kinase 39 U/L (30-135); Estimated Glomerular Filt Rate > 60.0 mL/min (>60); Globulin 3.5 g/dL (1.7-4.1); Glucose 95 mg/dL (70-100); HEMOLYSIS < 15 (0-50); Lipase 59 U/L (23-300); Sodium 137 mmol/L (137-145); Total Protein 7.7 g/dL (6.3-8.2)
[2022-02-02 09:28] LABS: Erythrocyte Sedimentation Rate 6 MM/HR (0-20)
[2022-02-02 09:30] LABS: NT-proBNP (BNP-Adult 18+) 29 pg/mL (<125); Troponin I < 0.012 ng/mL (0.01-0.034)
[2022-02-02] MEDS: SODIUM CHLORIDE 0.9% 1,000 ML 1000 ML IV (09:32)
[2022-02-02 09:35] LABS: Procalcitonin 0.03 ng/mL (<0.5)
[2022-02-02 10:25] LABS: Influenza A - CEPHEID Flu A NEGATIVE (NEGATIVE); Influenza B - CEPHEID Flu B NEGATIVE (NEGATIVE)
[2022-02-02 10:26] LABS: COVID-19 CEPHEID PCR (VTM/NP) Negative (Negative)
== END 2022-02-02 11:18 | disposition home or self-care (01) ==
PROVIDERS: Emergency Provider Emergency Medicine; PCP Family Medicine
DX: R11.2 Nausea with vomiting, unspecified (principal); R53.83 Other fatigue; F17.200 Nicotine dependence, unspecified, uncomplicated; Z20.822 Contact with and (suspected) exposure to COVID-19
CPT/HCPCS: 36415; 71045; 80053; 82550; 83690; 83880; 84145; 84484; 85025; 85379; 85651; 86140; 87635; 93005; 93010; 96360; 99284; C9803

== ENCOUNTER → 2023-08-26 07:58 | Outpatient (CLI) | payer OTHER, MEDICAID, SELFPAY ==
[2023-08-15 16:34] VITALS: BMI 21.8
[2023-08-26 08:54] LABS: Add Manual Diff / Slide Review NO; Basophils Absolute Auto 100 /uL (0-100); Basophils Percent Auto 1.2 % (0-2); Eosinophils Absolute Auto 200 /uL (0-450); Eosinophils Percent Auto 2.1 % (2-4); Hematocrit 40.8 % (36-46); Hemoglobin 14.1 g/dL (12.0-16.0); Lymphocytes Absolute Auto 1000 /uL (1100-4500); Lymphocytes Percent Auto 9.8 % (25-40); Mean Corpuscular HGB Conc 34.4 % (30-36); Mean Corpuscular Hemoglobin 30.2 PG (26-34); Mean Corpuscular Volume 87.6 fL (80-100); Monocytes Absolute Auto 700 /uL (0-900); Neutrophils Absolute Auto 8400 /uL (1500-7000); Neutrophils Percent Auto 79.9 % (50-75); Platelet Count 315 X10^3/uL (150-400); Red Blood Cell Count 4.66 X10^6/uL (4.0-5.2); White Blood Cell Count 10.5 X10^3/uL (4.5-11.0)
[2023-08-26 09:16] LABS: Alanine Aminotransferase 22 IU/L (<35); Albumin Globulin Ratio 1.3 (1.0-2.8); Alkaline Phosphatase 78 U/L (38-126); Aspartate Aminotransferase 23 IU/L (14-36); BUN Creatinine Ratio 13.9 (6-22); Bilirubin Total 0.4 mg/dL (0.2-1.3); Blood Urea Nitrogen 10 mg/dL (7-17); Calcium 9.7 mg/dL (8.4-10.2); Carbon Dioxide 25 mmol/L (22-32); Chloride 102 mmol/L (98-107); Cholesterol 152 mg/dL (140-199); Estimated Glomerular Filt Rate > 60 mL/min (>60); Globulin 3.1 g/dL (1.7-4.1); Glucose 92 mg/dL (70-100); HDL Cholesterol 53 mg/dL (40-60); HEMOLYSIS < 15 (0-50); LDL Cholesterol Calculated 77 mg/dL (<100); Potassium 4.3 mmol/L (3.4-5.1); Sodium 134 mmol/L (137-145); Total Protein 7.1 g/dL (6.3-8.2); Triglycerides 110 mg/dL (35-150)
[2023-08-26 09:22] LABS: Rheumatoid Factor < 8.6 IU/mL (<12.0)
[2023-08-26 09:52] LABS: TSH w/ Reflex to FT4 0.88 uIU/mL (0.47-4.68)
[2023-08-27 19:30] LABS: CCP Antibodies IgG/IgA 0 units (0-19)
== END ==
PROVIDERS: PCP Family Medicine; Referring Provider Family Medicine; Visit Provider Family Medicine
DX: Z86.39 Personal history of other endocrine, nutritional and metabolic disease (principal); Z13.220 Encounter for screening for lipoid disorders; F41.9 Anxiety disorder, unspecified; F32.9 Major depressive disorder, single episode, unspecified; M25.571 Pain in right ankle and joints of right foot; Z82.61 Family history of arthritis; G89.29 Other chronic pain; M25.572 Pain in left ankle and joints of left foot
CPT/HCPCS: 36415; 80053; 80061; 84443; 85025; 86200; 86430

== ENCOUNTER → 2023-11-18 07:47 | Outpatient (CLI) | payer OTHER, MEDICAID, SELFPAY ==
[2023-08-15 16:34] VITALS: BMI 21.8
--- NOTE | 2023-11-18 07:47 | DI.MG.S_ITS ---
BILATERAL DIGITAL SCREENING MAMMOGRAM 3D/2D WITH CAD: 11/18/2023 CLINICAL: Routine screening. Family history of breast cancer. Comparison is made to exams dated: 12/02/2020 ultrasound, 12/02/2020 mammogram, 11/07/2020 mammogram, 04/13/2013 mammogram, and 04/13/2013 mammogram - [facility]. Both breasts are extremely dense, which lowers the sensitivity of mammography (category d />75% glandular tissue). Current study was also evaluated with a Computer Aided Detection (CAD) system. No significant masses, calcifications, or other findings are seen in either breast. There has been no significant interval change. IMPRESSION: NEGATIVE There is no mammographic evidence of malignancy. A 1 year screening mammogram is recommended. Based on Tyrer-Cuzick model (a risk assessment model), the patient's lifetime risk is 24.4% and her 10 year risk is 4.5%. If a patient has an elevated risk, a more comprehensive evaluation should be considered and/or a referral to a genetic counselor. The [place] [employer], [place] [employer], and NCCN Guidelines advise the consideration of Breast MRI as an adjunct to screening mammography in patients whose Lifetime risk to develop breast cancer is 20% or higher. This exam was interpreted at Station ID: [id number]. NOTE: For mammograms, a report in lay terms will be sent to the patient. Approximately 15% of breast malignancies will not be visualized mammographically. In the management of a palpable breast mass, a negative mammogram must not discourage biopsy of a clinically suspicious lesion. Electronically Signed By: David parrish/julienne:11/19/2023 08:19:16 letter sent: Normal Exam ACR BI-RADS Category 1: Negative [id number]
== END ==
LOC: MAMMO 07:47
PROVIDERS: PCP Family Medicine; Referring Provider Family Medicine; Visit Provider Family Medicine
DX: Z12.31 Encounter for screening mammogram for malignant neoplasm of breast (principal); Z80.3 Family history of malignant neoplasm of breast; R92.343 Mammographic extreme density, bilateral breasts
CPT/HCPCS: 77063; 77067

== ENCOUNTER → 2024-06-21 07:43 | Outpatient (CLI) | payer OTHER, MEDICAID, SELFPAY ==
[2023-08-15 16:34] VITALS: BMI 21.8
[2024-06-21 08:09] LABS: Add Manual Diff / Slide Review NO; Basophils Absolute Auto 100 /uL (0-100); Basophils Percent Auto 1.1 % (0-2); Eosinophils Absolute Auto 300 /uL (0-450); Eosinophils Percent Auto 2.9 % (2-4); Hematocrit 41.5 % (36-46); Lymphocytes Absolute Auto 2500 /uL (1100-4500); Lymphocytes Percent Auto 21.8 % (25-40); Mean Corpuscular HGB Conc 33.8 % (30-36); Mean Corpuscular Hemoglobin 30.6 PG (26-34); Mean Corpuscular Volume 90.4 fL (80-100); Monocytes Absolute Auto 500 /uL (0-900); Monocytes Percent Auto 4.6 % (3-14); Neutrophils Absolute Auto 7800 /uL (1500-7000); Neutrophils Percent Auto 69.6 % (50-75); Platelet Count 347 X10^3/uL (150-400); Red Blood Cell Count 4.59 X10^6/uL (4.0-5.2); Red Cell Distribution Width 12.8 % (11.6-14.8); White Blood Cell Count 11.3 X10^3/uL (4.5-11.0)
[2024-06-21 08:37] LABS: Alanine Aminotransferase 16 IU/L (<35); Albumin 3.8 g/dL (3.5-5.0); Albumin Globulin Ratio 1.4 (1.0-2.8); Alkaline Phosphatase 75 U/L (38-126); Aspartate Aminotransferase 21 IU/L (14-36); BUN Creatinine Ratio 12.3 (6-22); Bilirubin Total 0.6 mg/dL (0.2-1.3); Blood Urea Nitrogen 10 mg/dL (7-17); C-Reactive Protein Quant 0.7 mg/dL (<1.0); Calcium 9.4 mg/dL (8.4-10.2); Carbon Dioxide 24 mmol/L (22-32); Chloride 105 mmol/L (98-107); Cholesterol 144 mg/dL (140-199); Estimated Glomerular Filt Rate > 60 mL/min (>60); Globulin 2.7 g/dL (1.7-4.1); Glucose 96 mg/dL (70-100); HDL Cholesterol 54 mg/dL (40-60); HEMOLYSIS < 15 (0-50); LDL Cholesterol Calculated 63 mg/dL (<100); Phosphorous 3.4 mg/dL (2.5-4.5); Potassium 3.8 mmol/L (3.4-5.1); Sodium 136 mmol/L (137-145); Total Protein 6.5 g/dL (6.3-8.2); Triglycerides 135 mg/dL (35-150)
[2024-06-21 08:38] LABS: Rheumatoid Factor < 8.6 IU/mL (<12.0)
[2024-06-21 08:42] LABS: Erythrocyte Sedimentation Rate 2 MM/HR (0-20)
[2024-06-21 08:51] LABS: Follicle Stimulating Hormone 3.58 mIU/mL; Luteinizing Hormone 8.23 mIU/mL
[2024-06-21 09:07] LABS: Cortisol AM (Before 10AM) 21.8 ug/dL (4.46-22.7)
[2024-06-21 09:08] LABS: TSH w/ Reflex to FT4 1.31 uIU/mL (0.47-4.68)
[2024-06-23 14:08] LABS: CCP Antibodies IgG/IgA 4 units (0-19)
[2024-06-26 12:36] LABS: Estrogen 396 pg/mL (.)
== END ==
PROVIDERS: PCP Family Medicine; Referring Provider Family Medicine; Visit Provider Family Medicine
DX: M25.50 Pain in unspecified joint (principal); M79.7 Fibromyalgia; R53.83 Other fatigue; G47.00 Insomnia, unspecified; F41.9 Anxiety disorder, unspecified; F32.9 Major depressive disorder, single episode, unspecified; R53.82 Chronic fatigue, unspecified; R53.81 Other malaise; R63.4 Abnormal weight loss; N92.6 Irregular menstruation, unspecified; R23.2 Flushing; Z86.39 Personal history of other endocrine, nutritional and metabolic disease
CPT/HCPCS: 36415; 80053; 80061; 82533; 82672; 83001; 83002; 84100; 84443; 85025; 85651; 86140; 86200; 86430

== ENCOUNTER → 2024-07-06 10:05 | Outpatient (CLI) | payer OTHER, MEDICAID, SELFPAY ==
[2024-07-04 17:38] VITALS: BMI 21.8
[2024-07-06 12:30] LABS: Vitamin D 25 Hydroxy (D3) 44.4 ng/mL (30.0-100.0)
[2024-07-06 13:50] LABS: Vitamin B12 429 pg/mL (239-931)
== END ==
PROVIDERS: PCP Family Medicine; Referring Provider Family Medicine; Visit Provider Family Medicine
DX: G90.A Postural orthostatic tachycardia syndrome [POTS] (principal); R53.82 Chronic fatigue, unspecified; R53.81 Other malaise
CPT/HCPCS: 36415; 82306; 82607

== ENCOUNTER → 2024-09-04 11:34 | Outpatient (CLI) | payer OTHER, MEDICAID, SELFPAY ==
[2024-07-04 17:38] VITALS: BMI 21.8
== END ==
PROVIDERS: PCP Family Medicine; Visit Provider Physician Assistant
DX: J02.9 Acute pharyngitis, unspecified (principal)
CPT/HCPCS: 87070; 87077; 87147